=== PATIENT | male | born 1950 | race Caucasian/White ===

== ENCOUNTER 2019-11-17 15:13 | Outpatient (CLI) | payer MEDICARE, SELFPAY ==
--- NOTE | ~2019-11-17 | US_ITS ---
EXAMINATION: US scrotum doppler EXAM DATE: 11/17/2019 15:54 INDICATION: Testicular swelling for one week. TECHNIQUE: Multiple grayscale and Doppler images of the testicles and scrotum were obtained bilateral ly. There is no prior study for comparison. FINDINGS: Right testicle measures 3.5 x 2.5 x 2.9 cm and is morphologically normal. Low resistance Doppler geri w confirmed. There is small epididymal cyst. Moderate size hydrocele. Left testicle measures 3.3 x 2.6 x 2.5 cm and is morphologically normal. Low resistance Doppler flow confirmed. There are small epididymal cysts. There is moderate-sized hydrocele. IMPRESSION: Moderate-sized bilateral hydroceles. Reviewed, dictated and finalized at location A.
== END 2019-11-17 15:14 | disposition home or self-care (01) ==
PROVIDERS: PCP Family Medicine; Visit Provider Family Medicine
DX: E11.9 Type 2 diabetes mellitus without complications (principal); N50.89 Other specified disorders of the male genital organs; N43.3 Hydrocele, unspecified
CPT/HCPCS: 76870; 93976

== ENCOUNTER 2020-01-31 11:03 | Outpatient (CLI) | payer MEDICARE, SELFPAY ==
--- NOTE | ~2020-01-31 | XR_ITS ---
EXAMINATION: XR knee RT min 4V DATE: 01/31/2020 11:29 INDICATION: Right knee pain. TECHNIQUE: 4 views of right knee were obtained. COMPARISON: Right knee radiographs 09/13/2016 FINDINGS: Bone alignment is normal. No fracture. There is mild tricompartmental osteoarthritis. There is a small knee joint effusion. IMPRESSION: 1. Mild right knee osteoarthritis. 2. Small right knee joint effusion. Reviewed, dictated and finalized at location A.
== END 2020-01-31 11:04 | disposition home or self-care (01) ==
PROVIDERS: PCP Family Medicine; Visit Provider Family Medicine
DX: M17.11 Unilateral primary osteoarthritis, right knee (principal); M25.461 Effusion, right knee
CPT/HCPCS: 73564

== ENCOUNTER → 2020-09-16 01:53 | Outpatient (CLI) | payer MEDICARE, SELFPAY ==
[2020-09-16 18:53] LABS: SARS-CoV-2 RNA PCR Negative
== END ==
PROVIDERS: PCP Physician Assistant; Visit Provider Urology
DX: Z01.812 Encounter for preprocedural laboratory examination (principal); Z20.822 Contact with and (suspected) exposure to COVID-19
CPT/HCPCS: C9803; U0003; U0005

== ENCOUNTER 2020-09-16 08:18 | Outpatient (CLI) | payer MEDICARE, SELFPAY ==
--- NOTE | 2020-09-16 | ECG_ITS ---
Measurements Intervals [place] Rate: 62 P: 25 MT: 171 QRS: 11 QRSD: 94 T: -7 QT: 318 QTc: 325 Interpretive Statements SINUS RHYTHM NONSPECIFIC T-WAVE ABNORMALITY- INFERIOR LEADS BASELINE ARTIFACT- I, II, III, AVL, AVF, V3-V4 BORDERLINE ECG Electronically Signed On 09-16-2020 8:54:29 ENGINEERING RESEARCH MANAGER by Kevin Espino D.O.
== END 2020-09-16 08:19 | disposition home or self-care (01) ==
PROVIDERS: PCP Physician Assistant; Referring Provider Anesthesiology; Visit Provider Urology
DX: N20.1 Calculus of ureter (principal); Z01.818 Encounter for other preprocedural examination; R94.31 Abnormal electrocardiogram [ECG] [EKG]
CPT/HCPCS: 87086; 93005

== ENCOUNTER 2020-09-20 00:25 | Day surgery (SDC) | payer MEDICARE, SELFPAY ==
[2020-09-15 10:42] VITALS: BMI 38.7
--- NOTE | ~2020-09-20 | XR_ITS ---
EXAMINATION: XR retrograde pyelo w/stent RT EXAM DATE: 09/20/2020 13:45 INDICATION: Right-sided obstructive nephropathy. TECHNIQUE: Fluoroscopy used during XR retrograde pyelo w/stent RT performed by Dr. Jeremiah Esquivel MD. The DAP for this procedure was 1555 radcm2. Cine run(s) available for review. FINDINGS: The right ureter was cannulated, injected. There is moderate right-sided hydronephrosis. A double-J ureteral stent was placed. Correlate with procedure note. IMPRESSION: Fluoroscopy used during XR retrograde pyelo w/stent RT. Reviewed, dictated and finalized at location A.
--- NOTE | ~2020-09-20 | XR_ITS ---
EXAMINATION: XR abdomen/kub 1V EXAM DATE: 09/20/2020 11:45 INDICATION: Preoperative. Stent placement. TECHNIQUE: Frontal projection of the upper abdomen, frontal projection lower abdomen/pelvis for inter pretation. There is no prior study for comparison. FINDINGS: There is approximately 5 x 10 mm calcification projecting in right paraspinal location, fu rther lateral than typically seen for ureteral stone. Multiple bilateral kidney stones are identified , larger burden on the left. Pelvic calcifications which are probably phleboliths. Nonobstructive bow el gas pattern. Moderate disc disease L4-5 and L5-S1. IMPRESSION: 1. Possible right mid ureteral stone. 2. Bilateral nephrolithiasis. Reviewed, dictated and finalized at location A.
--- NOTE | 2020-09-20 12:16 | WPDHPUPDATE1 ---
History and Physical Update Update Date/Time: 09/20/20 12:16 Pt now on anticoagulation for recent DVT. Plan cystoscopy and right ureteral stent insertion. Deferred definitive stone management History and Physical has been reviewed, including an updated exam of the patient. There are NO changes in the patient's condition. Risks, benefits, and alternatives have been discussed and questions answered. Patient agrees to proceed with procedure.
[2020-09-20 12:30] VITALS: BP 151/76; PULSE 52; RESP 18; TEMP 36.7; O2SAT 100
[2020-09-20] MEDS: LACTATED RINGERS 1,000 ML 30 ML IV CONT ×2 (12:30→14:45)
[2020-09-20] MEDS: ACETAMINOPHEN 500 MG TABLET 1000 MG PO (13:00)
--- NOTE | 2020-09-20 13:03 | WPDANESEPPF ---
Anes - Initial Pre Proc Eval Procedure: Operation Date: 09/20/20 14:15 Proposed Procedures p Cystoscopy, Right Ureteral Stent Placement - Jeremiah Esquivel MD Date/Time: 09/20/20 13:03 Surgeon: Jeremiah Esquivel MD Pre Op Diagnosis: Right Ureteral Stone Patient Data Age: 69 Gender: M Height: 5 ft 7 in Weight: 112.27 kg Allergies Allergy/AdvReac Type Severity Reaction Status Date / Time CIELO Inhibitors Allergy Mild Cough Verified 09/20/20 13:05 Home Medications Medication Instructions Recorded Confirmed Type diltiazem HCl 360 mg 180 mg PO DAILY tablet 02/21/20 09/15/20 History tablet,extended release 24 hr allopurinol 300 mg tablet 300 mg PO DAILY tablet 09/14/20 09/15/20 History apixaban 5 mg (74 tabs) tablets in See Rx Instructions PO PER PKG DIR 09/14/20 09/15/20 Rx a dose pack #74 ea atorvastatin 20 mg tablet 10 mg PO DAILY tablet 09/14/20 09/15/20 History losartan 50 mg tablet 50 mg PO DAILY #90 tablet 09/14/20 09/15/20 Rx metoprolol succinate 50 mg 50 mg PO DAILY #90 tablet 09/14/20 09/15/20 Rx tablet,extended release 24 hr indomethacin 50 mg PO .PRN PRN 09/15/20 09/15/20 History Patient hx anesthesia problems: none Family hx anesthesia problems: none PMFSH Past Medical History Medical History Gout Hyperlipidemia Hypertension Obesity, morbid, BMI 40.0-49.9 Skin lesion Type 2 diabetes mellitus Surgical History Surgical History No pertinent past surgical history Family History Family History Father Family history of cardiovascular disease Acute myocardial infarction Family history of coronary artery disease Social History Social History Smoking status: Never smoker Second hand tobacco smoke exposure: No Alcohol intake: current Drinks per week: 10 Substance use: never Substance use type: does not use Living arrangements: with family Gender identity (if verbalized by the patient): Male Spiritual care concerns: No Anes - Eval Final PreProcedure Day of Procedure 09/20/20 13:03 Patient weight: obese Heart: regular rate and rhythm Lungs: clear to auscultation Airway: Mallampati scale class II Neurological: alert and oriented Last oral intake: >/= 8 hours ASA classification: III Emergent: no Anesthetic plan: proceed Anesthesia type and monitoring: general GIVS and standard monitoring Informed Consent: The patient's anesthetic plan and its attendant risks and benefits were discussed with the patient/family/POA. Questions were solicited and answers provided to the satisfaction of the patient/family/POA.
[2020-09-20] MEDS: ceFAZolin 2 GM/D5W 50 ML 2 GM/50 ML BAG IVPB (13:09)
[2020-09-20] MEDS: LIDOCAINE HCL 2% GEL UROJET 10 ML PKG MUCOUS MEM (13:18)
[2020-09-20 13:35] VITALS: BP 115/61; PULSE 52; RESP 10; O2SAT 95
--- NOTE | 2020-09-20 13:56 | PM.PROC ---
Procedure Note - Detailed Date of procedure: 09/20/20 Pre-op diagnosis: Right Ureteral Stone Post-op diagnosis: same (Right ureteral stone, urethral stricture) Procedure performed: -cystoscopy -right retrograde pyelogram -right ureteral stent insertion -complex Tabares catheter insertion Description of procedure: Informed consents obtained. Patient to the OR room. He of preoperative IV antibiotics. He was induced with anesthesia. Placed in dorsal lithotomy position. A 22 F rigid cystoscope was inserted into the penile urethra, there was a stricture in penile urethra, restricting advancement of the rigid cystoscope. We therefore switched to a flexible cystoscope, and I was able to manipulate the scope beyond the narrowing in the penile urethra and advanced into the bladder. Inspection of bladder revealed no mucosal abnormalities. We then cannulated the right ureteral orifice. We advanced a [employer] wire and I was able to manipulate the wire past the level of the stones in the mid ureter. Over the wire a 4.8 variable length stent with a curl in the upper pole and curled the bladder was placed. We then left the wire in the bladder and then again attempted to place a rigid cystoscope adjacent to the wire however it would not easily pass, we then were able to advance a flexible cystoscope adjacent to the wire and entered the bladder. Inspection revealed appropriate curl of the stent at the ureteral orifice. Inspection of the urethra revealed a stricture in the penile urethra. Over the wire we placed a 18 F [place] tip catheter. The patient was then taken to PACU in stable condition Anesthesia: MAC Surgeon: Jeremiah Esquivel MD Drains: Yes Packing: No Pathology: none sent Complications: No immediate complications Condition: stable Disposition: PACU
[2020-09-20 14:15] VITALS: BP 115/61; PULSE 55; RESP 15; O2SAT 95
[2020-09-20 14:50] VITALS: BP 125/67; PULSE 61; RESP 15
[2020-09-20 15:20] VITALS: BP 127/64; PULSE 63; RESP 15
--- NOTE | 2020-09-20 15:59 | SUR.PHASEII ---
1500- Spoke with on the phone at great length regarding mendieta care and emptying of mendieta. answered questions she had. Also spoke with pt and demonstrated emptying of mendieta. Pt had some bleeding around head of penis around mendieta. abd pad placed when pt dressing to protect clothing.
== END 2020-09-20 15:35 | disposition home or self-care (01) ==
PROVIDERS: PCP Physician Assistant; Visit Provider Urology
PROC: (CPT 52352; principal; 2020-09-20 14:15)
DX: N20.1 Calculus of ureter (principal); N35.911 Unspecified urethral stricture, male, meatal; I10 Essential (primary) hypertension; E11.9 Type 2 diabetes mellitus without complications; E78.5 Hyperlipidemia, unspecified; M10.9 Gout, unspecified; Z79.01 Long term (current) use of anticoagulants; E66.01 Morbid (severe) obesity due to excess calories; Z68.39 Body mass index [BMI] 39.0-39.9, adult
CPT/HCPCS: 52332; 74018; 74420; 87086; 93005; A9270; C1769; C1887; C2617; C9803; J0690; J2704; J3010; J7120; U0003; U0005

== ENCOUNTER 2020-09-27 12:24 | Outpatient (CLI) | payer MEDICARE, SELFPAY ==
--- NOTE | ~2020-09-27 | XR_ITS ---
XR abdomen/kub 1V DATE: 09/27/2020 12:44 INDICATION: Right ureteral stone TECHNIQUE: AP projection, 2 views COMPARISON: 09/20/2020 right retrograde pyelogram 09/20/2020 KUB FINDINGS: Calcified calculus previously overlying the right ureter at the L4 level now overlies the l ower pole of the right kidney. There has been interval placement of right internal urinary stent with proximal pigtail overlying the right renal pelvis and distal pigtail overlying the urinary bladder. A Tabares catheter is noted. Bilateral nephrolithiasis. There is a moderate amount of fecal material in the colon but no evidence of bowel obstruction. The p soas shadows are intact. No visceromegaly is evident. Diffuse idiopathic skeletal hyperostosis of the thoracolumbar spine. IMPRESSION: Right internal urinary stent placement; previous large calcified calculus has been displa maddi into the lower pole of the right kidney from the right ureter at the L4 level Bilateral nephrolithiasis Reviewed, dictated and finalized at Location A. Reviewed, dictated and finalized at location B. IMPRESSION: Right internal urinary stent placement; previous large calcified ca lculus has been displaced into the lower pole of the right kidney from the righ t ureter at the L4 level Bilateral nephrolithiasis
== END 2020-09-27 12:25 | disposition home or self-care (01) ==
PROVIDERS: PCP Physician Assistant; Visit Provider Urology
DX: N20.0 Calculus of kidney (principal)
CPT/HCPCS: 74018

== ENCOUNTER 2020-09-29 12:23 | Emergency (ER) | payer MEDICARE, SELFPAY ==
--- NOTE | ~2020-09-29 | CT_ITS ---
EXAMINATION: CT abdomen pelvis wo con DATE: 09/29/2020 13:17 INDICATION: UTI. Kidney stones. Lung bases are unremarkable. Heart size is normal. No significant ple ural or pericardial effusion. TECHNIQUE: Computed tomography (CT) of the abdomen and pelvis was performed without intravenous contr ast. The dose-length product was 569.03 mGy-cm. Automated exposure control and iterative reconstructi on technique were employed. COMPARISON: None. FINDINGS: Heart size normal. No significant pleural or pericardial effusion. There is a right interna l ureteral stent in expected position. There is mild right periureteral edema. There are multiple shilo ateral renal stones. No definite ureteral stones are identified. There are bilateral renal cysts, lar gest in the right kidney measuring 5.9 cm. The prostate gland is enlarged. There is a urachal remnant . Severe lumbar spondylosis with grade 1 spondylolisthesis at L3-4. The liver, spleen, pancreas, adrenal glands are unremarkable. Gallbladder is present. Nonobstructive bowel gas pattern. No free air or free fluid. IMPRESSION: 1. Nonobstructing bilateral nephrolithiasis. Right internal ureteral stent in expected position. Mild right periureteral edema which is most likely secondary to instrumentation, although ascending urina ry tract infection not excluded. Trace gas in the bladder. Reviewed, dictated and finalized at location B. IMPRESSION: 1. Nonobstructing bilateral nephrolithiasis. Right internal ureteral stent in e xpected position. Mild right periureteral edema which is most likely secondary to instrumentation, although ascending urinary tract infection not excluded. Tr pedro pablo gas in the bladder.
[2020-09-29 12:30] VITALS: BP 133/64; PULSE 84; RESP 16; TEMP 36.5; O2SAT 99
[2020-09-29 12:59] LABS: Add Urine Microscopic? YES; Appearance Urine Cloudy (Clear); Bilirubin Urine Negative (Negative); Blood Urine 2+ (Negative); Color Urine Yellow (Yellow); Glucose Urine UA Negative (Negative); Ketones Urine Negative (Negative); Leukocyte Esterase Ur 3+ LEU/UL (Negative); Mucus Urine Rare /lpf; Nitrate Urine Positive (Negative); Protein Urine 2+ mg/dL (Negative); RBC Urine 21-50 /hpf (0-2); Specific Grav Ur 1.015 (1.001-1.035); Squamous Epithelial Cell Urine Occasional /hpf (Few); WBC Clumps Urine Present /HPF; WBC Urine >75 /hpf
--- NOTE | 2020-09-29 13:07 | ED.GENADULT ---
HPI - General Adult General Chief complaint: Urogenital-Male Stated complaint: UTI? Time Seen by Provider: 09/29/20 12:39 Source: RN notes reviewed History of Present Illness HPI narrative: Patient presents emergency department from home for fever. Patient states he had a fever of 100.5 at home she has been associated with dysuria and cloudy urine for the past day patient states he had a history of urinary retention just had a Tabares catheter removed by Dr. Esquivel on Friday patient also states he has a kidney stone on the left side however he is on blood thinners for blood clot in his leg and they were waiting until the blood clot had resolved the patient could be off thinners to have surgery for his kidney stone he denies any chest pain shortness of breath abdominal pain or any other symptoms states he had taking Tylenol ibuprofen Related Data Home Medications Medication Instructions Recorded Confirmed diltiazem HCl 360 mg 180 mg PO DAILY tablet 02/21/20 09/15/20 tablet,extended release 24 hr allopurinol 300 mg tablet 300 mg PO DAILY tablet 09/14/20 09/15/20 atorvastatin 20 mg tablet 10 mg PO DAILY tablet 09/14/20 09/15/20 indomethacin 50 mg PO .PRN PRN 09/15/20 09/15/20 Allergies Allergy/AdvReac Type Severity Reaction Status Date / Time CIELO Inhibitors Allergy Mild Cough Verified 09/29/20 12:35 Review of Systems Review of Systems: Narrative: Gen.: Reports fever ENT: Denies congestion Respiratory: Denies shortness of breath or cough CV: Denies chest pain or palpitations GI: Denies abdominal pain nausea, emesis or diarrhea see HPI Musculoskeletal: Denies back pain or muscle pain Neuro: Denies numbness, tingling, weakness or focal weakness Skin: Denies rash Except as documented, all other systems reviewed and negative [facility] Past Medical History Medical History Gout Hyperlipidemia Hypertension Obesity, morbid, BMI 40.0-49.9 Skin lesion Type 2 diabetes mellitus Surgical History Surgical History No pertinent past surgical history Family History Family History Father Family history of cardiovascular disease Acute myocardial infarction Family history of coronary artery disease Social History Social History Smoking status: Never smoker Second hand tobacco smoke exposure: No Alcohol intake: current Drinks per week: 10 Substance use: never Substance use type: does not use Gender identity (if verbalized by the patient): Male Spiritual care concerns: No Exam Narrative: Exam Narrative: APPEARANCE: No acute distress, nontoxic, resting in bed EYES: EOMI HEENT: Normocephalic, atraumatic, OMM RESPIRATORY: No respiratory distress Clear to auscultation bilaterally with no rhonchi wheezing or rales. CARDIOVASCULAR: Regular rate and rhythm without murmurs rubs or gallops. ABDOMINAL: Soft, nontender, nondistended, no rebound or guarding MUSCULOSKELETAl: Moves all extremities. No clubbing, cyanosis or edema. NEURO: Awake and alert. Following commands, speech normal, no focal deficits SKIN:: Warm, dry. No rashes lesions or abrasions PSYCHIATRIC: Normal affect/mood, Course Course Emergency Course: : Discussed with DIRECTOR MEDICAL SAFETY Martina who discussed the case with Dr. Finn. This time they recommend starting the patient on Levaquin may be discharged to follow-up as an outpatient we discussed the patient's post void residual request no Tabares at this time Patient got up and ambulated to the restroom with no difficulty Discussed with patient results of workup and diagnosis. Discussed need for follow-up with primary care, proper use of medication, and reasons to return to the emergency department. Patient understands and agrees to current treatment plan Vital Signs Vital signs: V
[2020-09-29] MEDS: SODIUM CHLORIDE 0.9% IV 1,000 ML 999 ML IV CONT (13:15)
[2020-09-29 13:18] LABS: Basophils Absolute Auto 0.1 K/mm3 (0.0-0.1); Basophils Percent Auto 0.5 % (0.2-1.2); Eosinophils Percent Auto 0.2 % (0-4.4); Hematocrit 41.8 % (42.0-52.0); Hemoglobin 14.4 g/dL (14.0-18.0); Immature Granulocyte Absolute 0.05 K/mm3 (0.00-0.031); Immature Granulocyte Percent A 0.4 % (0-0.5); Lymphocytes Absolute Auto 1.22 K/mm3 (0.9-3.2); Lymphocytes Percent Auto 9.2 % (18.3-44.2); Mean Corpuscular HGB Conc 34.4 g/dl (32-36); Mean Corpuscular Hemoglobin 31.3 pg (26-34); Mean Corpuscular Volume 90.9 fl (80-100); Mean Platelet Volume 9.6 fl (7.4-10.4); Monocytes Absolute Auto 0.9 K/mm3 (0.1-0.6); Monocytes Percent Auto 6.6 % (2.6-8.5); Neutrophils Percent Auto 83.1 % (45.5-73.1); Platelet Count Result 214 k/mm3 (150-375); Red Cell Distribution Width 12.9 % (11.5-14.5); White Blood Count 13.2 K/mm3 (4.5-10.0)
[2020-09-29 13:26] LABS: INR 1.5; Prothrombin Time 18.5 Seconds (11.1-14.7)
[2020-09-29 13:27] LABS: Partial Thromboplastin Time 35.8 SECONDS (22.3-36.8)
[2020-09-29 13:30] LABS: Alanine Aminotransferase 45 U/L (4-50); Albumin Level 4.3 g/dL (3.5-5.1); Alkaline Phosphatase 123 U/L (38-126); Anion Gap 8 mmol/L (8-16); Aspartate Amino Transferase 32 U/L (17-59); Bilirubin,Total 1.4 mg/dL (0.2-1.3); Blood Urea Nitrogen 23 mg/dL (9-20); Calcium 8.9 mg/dL (8.4-10.2); Carbon Dioxide 30 mmol/L (22-30); Chloride 102 mmol/L (98-107); Estimated CRCL calculation 44 ml/min; Estimated Glomerular Filt Rate 40; Glucose 122 mg/dL (75-110); Potassium 3.6 mmol/L (3.4-5.0); Sodium 140 mmol/L (137-145)
[2020-09-29 14:09] LABS: Lactic Acid Reflex 1.1 mmol/L (0.7-2.1)
[2020-09-29 14:47] VITALS: BP 121/66; PULSE 77; RESP 12; O2SAT 99
[2020-09-29 15:47] VITALS: BP 124/70; PULSE 70; RESP 12; O2SAT 99
== END 2020-09-29 15:47 | disposition home or self-care (01) ==
PROVIDERS: Emergency Provider Emergency Medicine; PCP Physician Assistant
DX: N39.0 Urinary tract infection, site not specified (principal); M10.9 Gout, unspecified; E78.5 Hyperlipidemia, unspecified; I10 Essential (primary) hypertension; E66.01 Morbid (severe) obesity due to excess calories; Z68.37 Body mass index [BMI] 37.0-37.9, adult; E11.9 Type 2 diabetes mellitus without complications; N20.0 Calculus of kidney; Z96.0 Presence of urogenital implants; Z79.01 Long term (current) use of anticoagulants
CPT/HCPCS: 36415; 74176; 80053; 81001; 83605; 85025; 85610; 85730; 87040; 87077; 87086; 87088; 87186; 96361; 96365; 99284; J1956; J7030

== ENCOUNTER 2020-10-01 23:28 | Inpatient (IN) | payer MEDICARE, SELFPAY ==
--- NOTE | ~2020-10-01 | XR_ITS ---
EXAMINATION: XR chest 1V portable DATE: 10/02/2020 00:36 INDICATION: Fever TECHNIQUE: frontal view of the chest was obtained. COMPARISON: Chest radiograph dated 07/18/15 FINDINGS: Small lung volumes. Opacities in the left lower lung zone. No pleural effusion or pneumothorax. The c ardiomediastinal silhouette is normal. Mild thoracic dextrocurvature with moderate spondylosis. IMPRESSION: 1. Opacities in the left lower lung zone which could represent atelectasis and/or pneumonia. Reviewed, dictated and finalized at location A. IMPRESSION: 1. Opacities in the left lower lung zone which could represent atelectasis and/ or pneumonia.
--- NOTE | ~2020-10-01 | XR_ITS ---
EXAMINATION: XR abdomen/kub 1V DATE: 10/02/2020 00:35 INDICATION: Ureteral stent TECHNIQUE: A supine view of the abdomen on 2 radiographs was obtained. COMPARISON: CT dated 09/29/2020 FINDINGS: Right internal ureteral stent in unchanged position with loops formed at the right renal pelvis and b ladder. Bilateral nephrolithiasis which includes approximately 6 mm stones at the mid and lower pole of the left kidney and at the lower pole of the right kidney. No stones identified along the course o f the ureters. Multiple phleboliths in the pelvis. Severe lumbar spondylosis with partially sacralize d lumbosacral segment. IMPRESSION: 1. Bilateral nephrolithiasis with unchanged right internal ureteral stent. Reviewed, dictated and finalized at location A.
--- NOTE | ~2020-10-01 | CT_ITS ---
EXAMINATION: CT abdomen pelvis wo con DATE: 10/02/2020 02:47 INDICATION: Right flank pain. Kidney stones. TECHNIQUE: Computed tomography (CT) of the abdomen and pelvis was performed without intravenous contr ast. The dose-length product was 1465.84 mGy-cm. Automated exposure control and iterative reconstruct ion technique were employed. COMPARISON: CT dated 09/29/2020 FINDINGS: r there is a 3 mm right middle lobe nodule. There is a fissural nodule on the right measuri ng 8 mm, not appreciated on prior examination. Heart size normal. There is atherosclerosis. Small hia xiomara hernia. Right ureteral stent in expected position. Mild right periureteral edema. There are bilateral renal s tones. No definite ureteral stones. Mild right hydronephrosis. No left hydronephrosis. Bilateral javier l cysts. Nonobstructive bowel gas pattern. Mild atherosclerosis without aneurysm. Enlarged prostate gland. The re is osteoarthritis of the hips. Severe lumbar spondylosis. Nonspecific adrenal thickening unchanged , likely adrenal hyperplasia. IMPRESSION: 1. No significant interval change from prior examination with right ureteral stent in expected positi on. No definite ureteral stones. Mild right hydronephrosis and periureteral edema. 2: Bilateral nephrolithiasis. Reviewed, dictated and finalized at location B. IMPRESSION: 1. No significant interval change from prior examination with right ureteral st ent in expected position. No definite ureteral stones. Mild right hydronephrosi s and periureteral edema. 2: Bilateral nephrolithiasis.
[2020-10-01 23:35] VITALS: BP 126/72; PULSE 109; RESP 18; TEMP 39.4; O2SAT 95
--- NOTE | 2020-10-01 23:42 | ECG_ITS ---
Measurements Intervals [place] Rate: 102 P: -7 AL: 161 QRS: 9 QRSD: 87 T: -7 QT: 360 QTc: 471 Interpretive Statements SINUS TACHYCARDIA DELAYED PRECORDIAL R/S TRANSITION BORDERLINE ST-T WAVE ABNORMALITY- INF/HIGH LAT LEADS BORDERLINE ECG Electronically Signed On 10-02-2020 7:04:10 CDT by Kevin Espino D.O.
[2020-10-02] VITALS (14 sets, daily range): BP systolic 85–139; BP diastolic 51–71; PULSE 61–88; RESP 14–23; TEMP 36.7–37.7; O2SAT 95–99; BMI 37.4
[2020-10-02 00:11] LABS: Basophils Percent Auto 0.4 % (0.2-1.2); Eosinophils Percent Auto 1.6 % (0-4.4); Hematocrit 40.4 % (42.0-52.0); Hemoglobin 14.2 g/dL (14.0-18.0); Immature Granulocyte Absolute 0.01 K/mm3 (0.00-0.031); Immature Granulocyte Percent A 0.4 % (0-0.5); Lymphocytes Absolute Auto 0.11 K/mm3 (0.9-3.2); Lymphocytes Percent Auto 4.3 % (18.3-44.2); Mean Corpuscular HGB Conc 35.1 g/dl (32-36); Mean Corpuscular Hemoglobin 31.1 pg (26-34); Mean Corpuscular Volume 88.6 fl (80-100); Mean Platelet Volume 9.6 fl (7.4-10.4); Monocytes Percent Auto 0.8 % (2.6-8.5); Neutrophils Absolute Auto 2.4 K/mm3 (1.3-6.7); Neutrophils Percent Auto 92.5 % (45.5-73.1); Platelet Count Result 185 k/mm3 (150-375); Red Blood Count 4.56 M/mm3 (4.6-6.20); Red Cell Distribution Width 12.6 % (11.5-14.5); White Blood Count 2.6 K/mm3 (4.5-10.0)
[2020-10-02] MEDS: SODIUM CHLORIDE 0.9% IV 1,000 ML 999 ML IV CONT ×2 (00:12→01:16)
--- NOTE | 2020-10-02 00:17 | ED.FEVER ---
HPI - Fever General Chief Complaint: Fever Stated Complaint: fever, shakes Time Seen by Provider: 10/01/20 23:37 Source: patient Mode of arrival: ambulatory Limitations: no limitations History of Present Illness HPI Narrative: This is a 69 year old male with history of bilateral kidney stones, urethral stricture, hypertension, recent DVT on anticoagulation who presents for evaluation of fever, shakiness and weakness. Patient states he has not felt well for a few days. He was evaluated in [place] ED on Friday and he was started on antibiotics for a uti. He was started on Levaquin but he has still not felt well. His states tonight he developed a fever, shakiness and weakness. He has associated nausea but denies fever, diarrhea, cough, chest pain , abdominal pain, back pain or shortness of breath. He was noted to have a fever of 103F in ER tonight and he took 1000 mg Tylenol prior to coming to ER. He has frequent urination . Patient had a right ureteral stent placed by Dr. Esquivel on 09/20/20. He also had a Tabares catheter at time of procedure but it was removed last week. MD elicited complaint: fever Related Data Home Medications Medication Instructions Recorded Confirmed diltiazem HCl 360 mg 180 mg PO DAILY tablet 02/21/20 10/02/20 tablet,extended release 24 hr allopurinol 300 mg tablet 300 mg PO DAILY tablet 09/14/20 10/02/20 atorvastatin 20 mg tablet 10 mg PO DAILY tablet 09/14/20 10/02/20 indomethacin 50 mg PO .PRN PRN 09/15/20 10/02/20 apixaban [Eliquis DVT-PE Treat 30D 10 mg PO DAILY 10/02/20 10/02/20 Start] Allergies Allergy/AdvReac Type Severity Reaction Status Date / Time CIELO Inhibitors Allergy Mild Cough Verified 10/01/20 23:40 Review of Systems Review of Systems: All systems reviewed & are unremarkable except as noted in HPI and below Constitutional: Constitutional: Reports chills, Reports fatigue and Reports fever(s) ENT: Denies sore throat Cardiovascular: Cardiovascular: Denies chest pain Respiratory: Respiratory: Denies cough and Denies dyspnea Gastrointestinal: Gastrointestinal: Denies abdominal pain, Denies diarrhea, Reports nausea and Reports vomiting Genitourinary: Genitourinary: Reports urinary frequency Musculoskeletal: Musculoskeletal: Denies back pain PMF Past Medical History Medical History (Updated 10/02/20 @ 05:46 by Johana Thorpe MD) DVT (deep venous thrombosis) After road trip to [place] 09/14/2020 Gout Hyperlipidemia Hypertension Obesity, morbid, BMI 40.0-49.9 Skin lesion Type 2 diabetes mellitus Surgical History Surgical History (Updated 10/02/20 @ 03:58 by Leatah Clark DO) S/P ureteral stent placement (09/20/20) Right ureteral stent placed by Dr. Roy Family History Family History Father Acute myocardial infarction Heart disease Social History Social History Smoking status: Never smoker Second hand tobacco smoke exposure: No Alcohol intake: current Drinks per week: 14 Substance use: never Substance use type: does not use Gender identity (if verbalized by the patient): Male Spiritual care concerns: No Exam Const: General: alert, diaphoretic and ill appearing Orientation/consciousness: patient oriented x3 Eyes: EOM: EOMs intact bilaterally Chest: Chest palpation & inspection: normal inspection of the chest Resp: Effort & Inspection: normal respiratory effort and no retractions Auscultation: clear to auscultation bilaterally Cardio: Rate: regular rate Rhythm: regular rhythm Heart sounds: no murmurs GI: GI Palp: Yes Soft to palpation, No Tenderness to palpation present (GI) and No Guarding due to palpation present (GI) Auscultation: normal bowel sounds : General: Yes no CVA tenderness Skin: General skin exam: normal color Rashes: no rashes Neuro: General: p
--- NOTE | 2020-10-02 00:20 | PC.NURSE ---
pt provided with urinal, states unable to void at this time. Will attempt again shortly
[2020-10-02 00:29] LABS: Alanine Aminotransferase 60 U/L (4-50); Albumin Level 4.2 g/dL (3.5-5.1); Alkaline Phosphatase 137 U/L (38-126); Anion Gap 12 mmol/L (8-16); Aspartate Amino Transferase 58 U/L (17-59); Bilirubin,Total 1.3 mg/dL (0.2-1.3); Blood Urea Nitrogen 25 mg/dL (9-20); Calcium 9.2 mg/dL (8.4-10.2); Carbon Dioxide 23 mmol/L (22-30); Chloride 103 mmol/L (98-107); Estimated Glomerular Filt Rate 30; Glucose 218 mg/dL (75-110); Potassium 3.1 mmol/L (3.4-5.0); Sodium 138 mmol/L (137-145)
[2020-10-02 00:38] LABS: CRP 17.5 mg/dL (<1.0)
--- NOTE | 2020-10-02 00:45 | PC.NURSE ---
pt attempted to void, unsuccessful at this time. will try again shortly
[2020-10-02 01:18] LABS: INR 1.6; Partial Thromboplastin Time 39.5 SECONDS (22.3-36.8); Prothrombin Time 19.3 Seconds (11.1-14.7)
--- NOTE | 2020-10-02 01:26 | PC.NURSE ---
attempted to obtain urine, stood pt up with urinal. urine obtained and sent to lab.
[2020-10-02 01:32] LABS: Add Urine Microscopic? YES; Appearance Urine Cloudy (Clear); Bacteria Urine 4+ /hpf; Bilirubin Urine Negative (Negative); Blood Urine 1+ (Negative); Color Urine Yellow (Yellow); Glucose Urine UA Negative (Negative); Ketones Urine Negative (Negative); Leukocyte Esterase Ur 3+ LEU/UL (Negative); Mucus Urine Heavy /lpf; Nitrate Urine Positive (Negative); Protein Urine 2+ mg/dL (Negative); RBC Urine 21-50 /hpf (0-2); Specific Grav Ur 1.018 (1.001-1.035); Squamous Epithelial Cell Urine Occasional /hpf (Few); WBC Urine >75 /hpf
[2020-10-02] MEDS: LACTATED RINGERS 1,000 ML 999 ML IV CONT (02:25)
--- NOTE | 2020-10-02 02:39 | PC.NURSE ---
pt went down to catscan.
[2020-10-02 03:10] LABS: Reflex Lactic Acid Yes or No Add Lactic
[2020-10-02] MEDS: SODIUM CHLORIDE 0.9% IV 500 ML 999 ML IV CONT (03:20)
--- NOTE | 2020-10-02 03:38 | ADMGEN ---
This patient, Junior Morrow, was admitted to Intensive Care Unit-6. Patient/family oriented to hospital policies and general routines including ID bracelet, bed and alarms, visiting hours, pain management, procedures, bathroom and other care routines, personal items, smoking policy, room service/diet, and visiting hours. Information on how to activate the Rapid Response Team has been discussed. Patient/Family are encouraged to report perceived risks to care and to ask questions if they do not understand what they are told or what they should do.
--- NOTE | 2020-10-02 03:45 | PM.IMHP ---
H&P: HPI History of Present Illness Date/Time: 10/02/20 03:45 Chief Complaint: Fever Narrative: 69-year-old male with a past medical history of pre diabetes, hypertension, DVT, bilateral kidney stones with proximal right ureteral stone with subsequent cystoscopy with stent placement 09/20/2020 who presented to the ER with fever chills and weakness. The patient had recently traveled to [place] at which time he developed right flank pain and was found to have tandem right ureteral stones measuring up to 8 mm. He subsequently drove home over 3 day. He went for cystoscopy on 09/14/2020 but reported acute left lower extremity swelling was found to have an acute DVT in the proximal femoral vein extending into the anterior tibial, posterior tibial and peroneal veins. He was started on Eliquis. His cystoscopy was canceled at that time in rescheduled for cystoscopy on 09/20/2020. He underwent cystoscopy without difficulty and is Tabares catheter would was removed on 09/24/2020. He presented with a temperature of 100.5? associated with dysuria and cloudy urine. He had a CT of the abdomen and pelvis performed at that time nonobstructive bilateral nephrolithiasis with right internal ureteral stent in expected position with mild right irene ureteral edema most likely secondary to instrumentation although ascending UTI could not be excluded. The patient was discharged from the ER on empiric antibiotic therapy with Levaquin he was supposed to call the urology office on 10/02/2020. Unfortunately, he continued to have low-grade fevers, weakness and chills. He decided to come to the ER per his daughter's request when he spiked a temperature of 103.5? at home. He took a g of Tylenol in still had a temperature of a 103? when he arrived to the ER. He has been having increased frequency of urination and persistent dysuria. It turns out that the patient's urine culture from 09/29/2020 grew out E coli that was resistant to Levaquin. Review of Systems Review of Systems: Narrative: 12 systems were reviewed with pertinent positives and negatives per HPI. Except as documented in the HPI, all other systems were reviewed and are negative. [facility] Past Medical History Medical History (Updated 10/02/20 @ 06:43 by Leatha Clark DO) DVT (deep venous thrombosis) Left lower extremity after road trip to [place] 09/14/2020 Gout Hyperlipidemia Hypertension Obesity, morbid, BMI 40.0-49.9 Obstructive sleep apnea on CPAP Pre-diabetes No longer on medications with hemoglobin A1c of 5.04 September 2020 Skin lesion Excised from forearm Surgical History Surgical History (Updated 10/02/20 @ 03:58 by Leatha Clark DO) S/P ureteral stent placement (09/20/20) Right ureteral stent placed by Dr. Roy Family History Family History Father Acute myocardial infarction Heart disease Social History Social History (Updated 10/02/20 @ 06:33 by Leatha Clark DO) Social History: He lives in [place] with his . 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 He has 4 daughters who are healthy. He drinks 2 alcoholic beverages a day. Primary care provider: Balta Pickens Code status: Full code Surrogate decision maker: Smoking status: Never smoker Second hand tobacco smoke exposure: No Alcohol intake: current Drinks per week: 14 Substance use: never Substance use type: does not use Gender identity (if verbalized by the patient): Male Spiritual care concerns: No Meds Home Medications and Allergies Home Medications Medication Instructions Recorded Confirmed Type diltiazem HCl 360 mg 180 mg PO DAILY tablet 02/21/20 10/02/20 History tablet,extended release 24 hr allopurinol 300 mg tablet 300 mg PO DAILY tablet 09/14/20 10/02/20 History atorvastatin 20 mg tablet 10 mg PO DAILY tablet 09/14/20 10/02/20 History losartan 50 mg tablet 50 mg PO DAILY #90 tablet
[2020-10-02] MEDS: LACTATED RINGERS 1,000 ML 125 ML IV CONT ×2 (04:28→09:05)
--- NOTE | 2020-10-02 05:02 | PCRCNOTE ---
Called RN about starting new cpap order. RN stated that pt is going to bring it in later today.
[2020-10-02] MEDS: CENTRAL LINE FLUSH 10 ML IV PUSH (06:19)
--- NOTE | 2020-10-02 06:46 | P.PCNBED_ITS ---
Procedures Central Line Placement Right Femoral: Central Line Date: 10/02/20 Central Line Time: 06:00 Discussed w/ the patient/family/POA,the placement of a central venous catheter, including its clinical necessity/indication & associated potential risks, benifits and alternatives.: Yes The patient/family/POA understand(s) and acknowledge(s) the need to proceed with central venous catheter insertion as an important element of the patient's clinical management.: Yes Time Out Performed: Yes Patient Position: trendelenburg Patient placed on monitor/pulse ox: Yes Provider Prep: mask, sterile gown, sterile gloves, Max. sterile barrier precautions, cap and hand hygiene with conventional soap/water or alcohol based hand rub Central line prep: 2% Chlorhexidine scrub Local anesthesia used: lidocaine 1% Amount of anesthesia used (ml): 10 Sterile US Technique with sterile gel/sterile probe covers: Yes Central line lumen inserted: triple Belarusian: 7 Length (cm): 20 Depth of Insertion (cm): 19 Post Procedure: sutured in place, good blood return, all ports aspirated, flushed, capped, transparent dressing, hemostatic product, antimicrobial product and securement product Complications: none
[2020-10-02] MEDS: POTASSIUM CHLORIDE 20 MEQ TABLET 40 MEQ PO (08:11)
[2020-10-02] MEDS: ATORVASTATIN 10 MG TABLET PO (08:11)
[2020-10-02] MEDS: APIXABAN 5 MG TABLET 10 MG PO (08:11)
[2020-10-02] MEDS: dilTIAZem HCL CD 180 MG CAP.ER.24H PO (08:11)
[2020-10-02] MEDS: allopurinoL 300 MG TABLET PO (08:11)
--- NOTE | 2020-10-02 09:22 | WPDURCON ---
Assessment and Plan Assessment and plan (1) Calculus of proximal right ureter: Code(s): N20.1 - Calculus of ureter Status: Acute Assessment and Plan: Stent is in place, although creatinine is elevated. Will continue to watch creatinine and if it rises may need to exchange stent or re-image. (2) UTI (urinary tract infection): Code(s): N39.0 - Urinary tract infection, site not specified Status: Acute Assessment and Plan: Continue use of Rocephin, will tailor according to culture. Culture from 09/29/2020 shows susceptibility to the culture. (3) Severe sepsis: Code(s): A41.9 - Sepsis, unspecified organism; R65.20 - Severe sepsis without septic shock Status: Acute (4) E. coli urinary tract infection: Code(s): N39.0 - Urinary tract infection, site not specified; B96.20 - Unspecified Escherichia coli [E. coli] as the cause of diseases classified elsewhere Status: Acute (5) Bilateral nephrolithiasis: Code(s): N20.0 - Calculus of kidney Status: Acute Assessment and Plan: No further surgical (6) Acute renal failure: Qualifiers: Acute renal failure type: unspecified Qualified Code(s): N17.9 - Acute kidney failure, unspecified Code(s): N17.9 - Acute kidney failure, unspecified Status: Acute Urology Consult Note HPI Date Seen: 10/02/20 Requesting Physician: Leatha Clark DO Primary Care Provider: Balta Pickens PA-C Consult Narrative Narrative: Junior Morrow is a 69 year old male who presented to the ER early this morning with worsening symptoms of UTI. He initially had a cystoscopy, right stent placed by Dr. Jeremiah Esquivel on 09/20/2020. He did well post operatively until he developed dysuria and frequency, as well as a low grade fever of 100 on 09/29/2020 and came to the [facility] at [facility] His WBC at that time was 13.6, fever was 100, and creatinine 1.70. He was started on Levaquin, a culture and CT were done as well and he was sent home. The CT on 09/29/2020 showed the right stent in position with bilateral non obstructive stones and the urine culture grew E-Coli resistant to Levaquin. Upon arriving at the ER this morning he was found to have a temperature of [address] scan showing mild right hydronephrosis and periureteral edema and bilateral non obstructive stones with the right stent still in place. His WBC is low 2.6 and creatine has risen to 2.20. He reports feeling weak, having chills and nausea accompanied by dysuria and frequency that had worsened over the weekend. He is also hypotensive at this time. He states he is now feeling better and his symptoms have improved since being admitted. A repeat urine and blood culture was taken. His previous blood culture showed no growth preliminarily. Review of Systems Cardiovascular: Cardiovascular: Denies chest pain Respiratory: Respiratory: Reports no additional respiratory complaints Gastrointestinal: Gastrointestinal: Denies abdominal pain, Reports nausea and Denies vomiting Genitourinary: Genitourinary: Denies hematuria, Reports dysuria, Denies flank pain, Reports urinary frequency, Denies urinary hesitancy and Denies urinary urgency PMFSH Past Medical History Medical History DVT (deep venous thrombosis) Left lower extremity after road trip to [place] 09/14/2020 Gout Hyperlipidemia Hypertension Obesity, morbid, BMI 40.0-49.9 Obstructive sleep apnea on CPAP Pre-diabetes No longer on medications with hemoglobin A1c of 5.04 September 2020 Skin lesion Excised from forearm Surgical History Surgical History S/P ureteral stent placement (09/20/20) Right ureteral stent placed by Dr. Roy Family History Family History Father Acute myocardial infarction Heart disease Social History Social H
--- NOTE | 2020-10-02 11:40 | WPDCNINT ---
Assessment and Plan Assessment and plan (1) E. coli urinary tract infection: Code(s): N39.0 - Urinary tract infection, site not specified; B96.20 - Unspecified Escherichia coli [E. coli] as the cause of diseases classified elsewhere Status: Acute Assessment and Plan: Continue ceftriaxone 1 g daily for 7 days. (2) Severe sepsis with acute organ dysfunction due to gram-negative bacteria: Code(s): A41.50 - Gram-negative sepsis, unspecified; R65.20 - Severe sepsis without septic shock Status: Acute Assessment and Plan: He never required vasopressor support and is doing well this morning. He has good urine output and is tolerating oral diet. (3) MARY LOU (acute kidney injury): Code(s): N17.9 - Acute kidney failure, unspecified Status: Acute Assessment and Plan: Unclear as to whether he has acute on chronic kidney injury or this is all acute. Will consult Nephrology for their expertise in management and appreciate their support. Additional Plan The patient is stable to transfer to the medical briones without telemetry DVT prophylaxis -already fully anticoagulated Stress ulcer prophylaxis - not needed Nutrition: resume cardiac diet Discussed with patient's mother and updated with patient's condition and plan of care. I answered all questions Code Status - Full Code Critical care time spent: 33 minutes This dictation may have been done utilizing a voice recognition system. Attempts have been made to correct errors. However, there may be uncorrected grammatical, spelling, and recognition errors present. Due to a high probability of clinically significant, life threatening deterioration, the patient required my highest level of preparedness to intervene emergently and I personally spent this critical care time directly and personally managing the patient. This critical care time included obtaining a history; examining the patient; pulse oximetry; ordering and review of studies; arranging urgent treatment with development of a management plan; evaluation of patient's response to treatment; frequent reassessment; and discussions with other providers. It was exclusive of separately billable procedures and treating other patients and teaching time. Please see Assessment and Plan section and the rest of the note for further information on patient assessment and treatment Palletiser Operator Consult Note Consult date: 10/02/20 Time Seen: 09:30 HPI: Junior Morrow is a 69 year old male who presented last night with sepsis due to UTI. He had significant nephrolithiasis and had a right ureter stent approximately 2-3 weeks ago. He came to our emergency department a few days ago with fevers chills night sweats and was prescribed Levaquin. At home he continued to deteriorate having intermittent bouts of fevers chills and night sweats. He was admitted last night with slight hypotension required fluid resuscitation but no requirement of vasopressor support. The urine culture from 09/29/20 showed E coli which was resistant to fluoroquinolones. He was started on ceftriaxone yesterday and he is feeling much better today. Other medical history includes obstructive sleep apnea, hypertension, hyperlipidemia and a history of DVT on anticoagulation. He denies any history of kidney disease although his creatinine has been between 1.7 and 2.2 for the time and record that he has been here going back to 09/11/20 Review of Systems Review of Systems: All systems reviewed & are unremarkable except as noted in HPI and below PMFSH Past Medical History Medical History DVT (deep venous thrombosis) Left lower extremity after road trip to [place] 09/14/2020 Gout Hyperlipidemia Hypertension Obesity, morbid, BMI 40.0-49.9 Obstructive sleep apnea on CPAP Pre-diabetes No longer on medications with hemoglobin A1c of 5.04 September 2020 Skin lesion Excised from forearm S
--- NOTE | 2020-10-02 13:42 | PM.CNNEP ---
Assessment and Plan Assessment and plan (1) MARY LOU (acute kidney injury): Code(s): N17.9 - Acute kidney failure, unspecified Status: Acute Assessment and Plan: multifactorial etiology: - prerenal factors - insensible losses from fevers - hypotension/hemodynamic instability - obstruction (although stents were already in place) - infection (UTI) recent imaging noted follow trend of labs and UOP continue current therapy (2) Stage 3a chronic kidney disease: Code(s): N18.31 - Chronic kidney disease, stage 3a Status: Chronic Assessment and Plan: presumed baseline creatinine ~ 1.28 - 1.29mg/dl (from 2017 - 2019) probably due to HTN, age, and vascular disease however, cannot discount a component of disease progression (3) Shock: Code(s): R57.9 - Shock, unspecified Status: Acute Assessment and Plan: better hemodynamics noted did not require pressor therapy holding anti-HTN medications follow trend of hemodynamics (4) UTI (urinary tract infection): Code(s): N39.0 - Urinary tract infection, site not specified Status: Acute Assessment and Plan: E. coli by urine culture on antibiottics (5) Nephrolithiasis: Code(s): N20.0 - Calculus of kidney Status: Acute Assessment and Plan: s/p ureteral stent placement Urology following Will continue to follow. History of Present Illness Reason for Consult Consult date: 10/02/20 Reason for consult: acute renal failure (on chronic kidney disease) Chief Complaint Chief complaint: severe sepsis, UTI acute, acute on chronic renal History of Present Illness Narrative: The patient is a 69-year-old male with a past medical history as outlined below who presented to [facility] ER with fever, chills, and weakness. The patient recently underwent cystoscopy as well as ureteral stent placement for bilateral ureteral stones on 09/20/2020. He had been scheduled to have this procedure done previously but he was recently diagnosed with a acute left lower extremity DVT the required anticoagulation. Hence, his previous cystoscopy was rescheduled while he was on anticoagulation [place] to 09/20/2020. He underwent the procedure without any issue or problem but then presented back to [facility] ER a few days later with low-grade temperatures, cloudy urine, and dysuria. CT scan of the abdomen pelvis at that time demonstrated the same nonobstructive bilateral known kidney stones as well as a right ureteral stent placement in the expected position. He was discharged home on oral antibiotics (Levaquin) with close follow-up with Urology. Unfortunately, despite the oral antibiotic therapy continued to have low-grade fevers chills and weakness and return back to [facility] ER at the behest of his family for further evaluation. Workup and evaluation in the emergency room on this hospitalization demonstrated temperature of 103.5? and despite the fact that he took Tylenol before even came to the ER, his temperature had not seem to improved whatsoever. He continued to have increased frequency of urination and persistent dysuria and given his suboptimal hemodynamics on presentation he was aggressively fluid resuscitated but did have a central line placed due to concerns of sepsis and the possible need for pressor therapy. However since his hospitalization, he has not require any type of initiation of pressor therapy and he was briefly in the intensive care unit and is subsequently be transferred out earlier today. Renal consultation was requested due to his abnormal BUN and creatinine on presentation on this hospitalization in comparison to previous values. I am not entirely sure what the patient's baseline creatinine is however from review of the electronic medical records, he has had a creatinine around 1.28-1.29 since
--- NOTE | 2020-10-02 14:16 | PC.NURSE ---
This patient, Junior Morrow, was transferred to [[id number] ] on 10/02/20 at 1416. Personal belongings sent with patient. Report given to [MARILEE Seay @ [phone] ]. Appropriate documentation sent with patient.
--- NOTE | 2020-10-02 14:39 | PM.IMPN ---
Progress Note: A&P Assessment and Plan (1) Septic shock due to Escherichia coli: Code(s): A41.51 - Sepsis due to Escherichia coli [E. coli]; R65.21 - Severe sepsis with septic shock Status: Acute Assessment and Plan: 10/02/20 14:39 patient is 69-year-old male with history of recurrent kidney stone and recurrent UTI initially patient was seen in emergency department had a CT scan of the abdomen showed bilateral nonobstructing kidney stone and UTI patient was treated with Levaquin and discharged however he presented with a fever of 103 and hypotension, initial urine culture showed resistant to Levaquin sensitive to Rocephin patient was started on Rocephin, and transferred to ICU for hypotension patient was started on IV fluid and responded well and did not require any vasopressor and remained clinically stable, patient with elevated creatinine patient is seen by urologist suspect secondary possibly to nonobstructive ureteral stone will continue to monitor kidney function patient be seen nephrology further recommendation to follow, patient seen by intensive patient is clinically stable will transfer patient out of ICU to medical floor, will continue to monitor. (2) E. coli urinary tract infection: Code(s): N39.0 - Urinary tract infection, site not specified; B96.20 - Unspecified Escherichia coli [E. coli] as the cause of diseases classified elsewhere Status: Acute Assessment and Plan: Plan is above (3) Acute renal failure: Qualifiers: Acute renal failure type: unspecified Qualified Code(s): N17.9 - Acute kidney failure, unspecified Code(s): N17.9 - Acute kidney failure, unspecified Status: Acute Assessment and Plan: Patient be seen by jammer hooker and further recommendation to follow (4) Calculus of proximal right ureter: Code(s): N20.1 - Calculus of ureter Status: Acute Assessment and Plan: Patient was seen by urology (5) Acute deep vein thrombosis (DVT) of left lower extremity: Qualifiers: Affected thrombotic vein of extremity: other lower extremity vein Qualified Code(s): I82.492 - Acute embolism and thrombosis of other specified deep vein of left lower extremity Code(s): I82.402 - Acute embolism and thrombosis of unspecified deep veins of left lower extremity Status: Acute Assessment and Plan: Anticoagulated with Eliquis (6) Hypokalemia: Code(s): E87.6 - Hypokalemia Status: Acute Assessment and Plan: Will monitor and supplement Additional Plan The patient has septic shock based on criteria persistent hypotension despite 30 mL/kilos bolus, leukopenia, and lactic acidosis with lactate of 4 and acute renal failure versus acute on chronic renal failure. The patient received a 30 mL/kilos bolus in the ER and remained hypotensive. A cheetah score was performed which demonstrated the patient should be fluid responsive with 11%. A subsequent 500 mL bolus over an hours ordered. Despite receiving fluid bolus patient remained hypotensive with blood pressures of 85/54. Subsequently have right femoral central line was placed. Subclavian line was not placed as the patient is on anticoagulants with Eliquis. Levophed has been ordered per protocol to titrate for maps of 65-70. Will continue empiric antibiotic therapy with Rocephin. The patient denies a history of chronic kidney disease. His creatinine to his cystoscopy on September 11 was 2.2. His creatinine had improved 1.7 wheezing in the ER on the . Is uncertain what the patient's creatinine is at baseline. Will continue IV fluid hydration and pressor therapy will treat underlying infection. Repeat BMP in a.m.. Monitor urine output closely. Will hold the patient's indomethacin for the for foreseeable future. Will replace patient's potassium of 40 mEq potassium chloride p.o. x1 1 hour spent in critical care activities. This case had a high probability of
--- NOTE | 2020-10-02 15:16 | PC.NURSE ---
This patient, Junior Morrow, was received from [ICU] on 10/02/20 at 1416. Patient/family oriented to unit policies and routines
[2020-10-02] MEDS: LACTATED RINGERS 1,000 ML 75 ML IV CONT (21:01)
[2020-10-03 05:43] VITALS: BP 120/61; PULSE 79; RESP 18; TEMP 37.2; O2SAT 96
[2020-10-03 06:09] LABS: Basophils Percent Auto 0.4 % (0.2-1.2); Eosinophils Absolute Auto 0.1 K/mm3 (0-0.3); Eosinophils Percent Auto 1.2 % (0-4.4); Hematocrit 31.5 % (42.0-52.0); Hemoglobin 10.8 g/dL (14.0-18.0); Immature Granulocyte Absolute 0.03 K/mm3 (0.00-0.031); Immature Granulocyte Percent A 0.4 % (0-0.5); Lymphocytes Absolute Auto 0.57 K/mm3 (0.9-3.2); Lymphocytes Percent Auto 7.6 % (18.3-44.2); Mean Corpuscular HGB Conc 34.3 g/dl (32-36); Mean Corpuscular Hemoglobin 30.5 pg (26-34); Mean Platelet Volume 9.6 fl (7.4-10.4); Monocytes Absolute Auto 0.7 K/mm3 (0.1-0.6); Monocytes Percent Auto 8.8 % (2.6-8.5); Neutrophils Absolute Auto 6.1 K/mm3 (1.3-6.7); Neutrophils Percent Auto 81.6 % (45.5-73.1); Platelet Count Result 131 k/mm3 (150-375); Red Blood Count 3.54 M/mm3 (4.6-6.20); Red Cell Distribution Width 12.9 % (11.5-14.5); White Blood Count 7.5 K/mm3 (4.5-10.0)
[2020-10-03 06:30] LABS: Alanine Aminotransferase 45 U/L (4-50); Alkaline Phosphatase 100 U/L (38-126); Anion Gap 6 mmol/L (8-16); Aspartate Amino Transferase 31 U/L (17-59); Bilirubin,Total 0.4 mg/dL (0.2-1.3); Blood Urea Nitrogen 22 mg/dL (9-20); Carbon Dioxide 27 mmol/L (22-30); Chloride 105 mmol/L (98-107); Estimated CRCL calculation 45 ml/min; Estimated Glomerular Filt Rate 40; Glucose 113 mg/dL (75-110); Magnesium 1.6 mg/dL (1.6-2.3); Potassium 3.5 mmol/L (3.4-5.0); Sodium 138 mmol/L (137-145)
[2020-10-03] MEDS: dilTIAZem HCL CD 180 MG CAP.ER.24H PO (07:35)
[2020-10-03] MEDS: allopurinoL 300 MG TABLET PO (07:35)
[2020-10-03] MEDS: ATORVASTATIN 10 MG TABLET PO (07:36)
[2020-10-03] MEDS: APIXABAN 5 MG TABLET 10 MG PO (07:36)
[2020-10-03] MEDS: POTASSIUM CHLORIDE 20 MEQ TABLET 40 MEQ PO (08:05)
[2020-10-03 09:01] VITALS: O2SAT 92
--- NOTE | 2020-10-03 09:01 | WPDUROPN2 ---
Progress Note: A&P Assessment and Plan (1) Nephrolithiasis: Code(s): N20.0 - Calculus of kidney Status: Acute Assessment and Plan: Will plan to surgically remove when infection has cleared. Dr. Esquivel to see patient tomorrow and disucss plan. (2) Severe sepsis with acute organ dysfunction due to gram-negative bacteria: Code(s): A41.50 - Gram-negative sepsis, unspecified; R65.20 - Severe sepsis without septic shock Status: Acute Assessment and Plan: Continue Ceftriaxone, cultures pending. Appears that the Ceftriaxone which was sensitive on his previous culture is improving his overall infection. Tailor antibiotics to culture results. (3) MARY LOU (acute kidney injury): Code(s): N17.9 - Acute kidney failure, unspecified Status: Acute Assessment and Plan: Improved. Subjective Subjective Date/Time Seen: 10/03/20 09:01 Patient improving very well, he feels much better, does report chills and fever last night around 1800, but nothing since he had Tylenol last night. His WBC is improved to 7.5, vitals are all stable and he is afebrile this morning. He is ambulatory and denies dysuria or hematuria. Cultures are still pending. Review of Systems Cardiovascular: Cardiovascular: Denies chest pain Respiratory: Respiratory: Reports no additional respiratory complaints Gastrointestinal: Gastrointestinal: Denies abdominal pain, Denies nausea and Denies vomiting Genitourinary: Genitourinary: Denies hematuria, Denies dysuria, Denies flank pain, Denies urinary hesitancy, Denies urinary incontinence and Denies urinary urgency Exam Resp: Effort & Inspection: normal respiratory effort Cardio: Rate: regular rate GI: GI Palp: Yes Soft to palpation and No Tenderness to palpation present (GI) : General: Yes no CVA tenderness Extrem: General: no edema Objective Data Vital Signs Vital Signs: Vital Signs - 24 hr 10/02/20 10:00 10/02/20 14:59 10/02/20 15:18 Temperature 98.1 F Pulse Rate 61 65 65 Respiratory Rate 14 16 16 Blood Pressure 106/61 103/51 L Pulse Oximetry 99 98 98 10/02/20 16:15 10/02/20 17:32 10/02/20 18:02 Temperature 99.0 F 99.0 F 98.3 F Pulse Rate Respiratory Rate Blood Pressure Pulse Oximetry 10/02/20 21:42 10/03/20 05:43 Temperature 98.2 F 98.9 F Pulse Rate 88 79 Respiratory Rate 20 18 Blood Pressure 119/56 L 120/61 Pulse Oximetry 98 96 Intake/Output Intake/Output: Intake & Output 09/30/20 10/01/20 10/02/20 10/03/20 23:59 23:59 23:59 23:59 Intake Total 6479.3 1610 Output Total 750 Balance 5729.3 1610 Meds/Results Medications: Active Medications Generic Name Dose Route Start Last Admin Trade Name Freq PRN Reason Stop Dose Admin Allopurinol 300 mg 10/02/20 09:00 10/03/20 07:35 Allopurinol 300 Mg Tablet PO 300 mg DAILY STEFFANIE Administration Apixaban 10 mg 10/02/20 09:00 10/03/20 07:36 Apixaban 5 Mg Tablet PO 11/01/20 09:01 10 mg DAILY STEFFANIE Administration Atorvastatin Calcium 10 mg 10/02/20 09:00 10/03/20 07:36 Atorvastatin 10 Mg Tablet PO 10 mg DAILY STEFFANIE Administration Diltiazem HCl 180 mg 10/02/20 09:00 10/03/20 07:35 Diltiazem Hcl Cd 180 Mg Cap.Er.24h PO 11/01/20 09:01 180 mg DAILY STEFFANIE Administration Ceftriaxone Sodium 2 gm in 100 mls @ 200 mls/hr 10/02/20 21:00 10/02/20 20:54 Rocephin 2 Gm/D5w 100 Ml IVPB 10/07/20 21:29 Infused Q24H STEFFANIE Infusion Ondansetron HCl 4 mg 10/02/20 02:32 Ondansetron Inj 4 Mg/2 Ml Vial IV PUSH Q4H PRN Nausea Radiology Results: ITS Impressions Chest X-Ray 10/02/20 07:23 IMPRESSION: 1. Opacities in the left lower lung zone which could represent atelectasis and/or pneumonia. Abdomen X-Ray 10/02/20 07:38 IMPRESSION: 1. Bilateral nephrolithiasis with unchanged right internal ureteral stent. Abdomen/Pelvis CT 10/02/20 08:10 IMPRESSION: 1. No significant interval change from ivan
--- NOTE | 2020-10-03 11:33 | PM.PNNEP ---
Progress Note: A&P Assessment and Plan (1) MARY LOU (acute kidney injury): Code(s): N17.9 - Acute kidney failure, unspecified Status: Acute Assessment and Plan: multifactorial etiology: - prerenal factors - insensible losses from fevers - hypotension/hemodynamic instability - obstruction (although stents were already in place) - infection (UTI) recent imaging noted follow trend of labs and UOP continue current therapy (2) Stage 3a chronic kidney disease: Code(s): N18.31 - Chronic kidney disease, stage 3a Status: Chronic Assessment and Plan: presumed baseline creatinine ~ 1.28 - 1.29mg/dl (from 2017 - 2019) probably due to HTN, age, and vascular disease however, cannot discount a component of disease progression (3) Shock: Code(s): R57.9 - Shock, unspecified Status: Acute Assessment and Plan: better hemodynamics noted did not require pressor therapy holding anti-HTN medications follow trend of hemodynamics (4) UTI (urinary tract infection): Code(s): N39.0 - Urinary tract infection, site not specified Status: Acute Assessment and Plan: E. coli by urine culture on antibiottics (5) Nephrolithiasis: Code(s): N20.0 - Calculus of kidney Status: Acute Assessment and Plan: s/p ureteral stent placement Urology following Will continue to follow. Subjective Date/time seen: 10/03/20 11:33 Appears to be doing reasonably well at the time of my visit; stable hemodynamics and reasonably urine output noted; no acute events/issues overnight or earlier this AM. Exam Narrative: Exam Narrative: General: WD/WN male in NAD Heart: normal S1 and S2; no rub Lungs: clear to auscultation Abdomen: soft, nontender, nondistended, positive bowel sounds Extremities: no cyanosis or clubbing; 1+ edema Skin: warm and dry Objective Data Vital Signs Vital Signs: Vital Signs Temp Pulse Resp BP Pulse Ox 10/03/20 09:01 92 10/03/20 05:43 37.2 C 79 18 120/61 96 10/02/20 21:42 36.8 C 88 20 119/56 L 98 10/02/20 18:02 36.8 C 10/02/20 17:32 37.2 C 10/02/20 16:15 37.2 C 10/02/20 15:18 65 16 98 10/02/20 14:59 36.7 C 65 16 103/51 L 98 Intake/Output Intake/Output: Intake & Output 09/30/20 10/01/20 10/02/20 10/03/20 23:59 23:59 23:59 23:59 Intake Total 6479.3 1610 Output Total 750 Balance 5729.3 1610 Meds/Results Medications: Active Medications Generic Name Dose Route Start Last Admin Trade Name Freq PRN Reason Stop Dose Admin Allopurinol 300 mg 10/02/20 09:00 10/03/20 07:35 Allopurinol 300 Mg Tablet PO 300 mg DAILY STEFFANIE Administration Apixaban 10 mg 10/02/20 09:00 10/03/20 07:36 Apixaban 5 Mg Tablet PO 11/01/20 09:01 10 mg DAILY STEFFANIE Administration Atorvastatin Calcium 10 mg 10/02/20 09:00 10/03/20 07:36 Atorvastatin 10 Mg Tablet PO 10 mg DAILY STEFFANIE Administration Diltiazem HCl 180 mg 10/02/20 09:00 10/03/20 07:35 Diltiazem Hcl Cd 180 Mg Cap.Er.24h PO 11/01/20 09:01 180 mg DAILY STEFFANIE Administration Ceftriaxone Sodium 2 gm in 100 mls @ 200 mls/hr 10/02/20 21:00 10/02/20 20:54 Rocephin 2 Gm/D5w 100 Ml IVPB 10/07/20 21:29 Infused Q24H STEFFANIE Infusion Ondansetron HCl 4 mg 10/02/20 02:32 Ondansetron Inj 4 Mg/2 Ml Vial IV PUSH Q4H PRN Nausea Radiology Results: ITS Impressions Chest X-Ray 10/02/20 07:23 IMPRESSION: 1. Opacities in the left lower lung zone which could represent atelectasis and/or pneumonia. Abdomen X-Ray 10/02/20 07:38 IMPRESSION: 1. Bilateral nephrolithiasis with unchanged right internal ureteral stent. Abdomen/Pelvis CT 10/02/20 08:10 IMPRESSION: 1. No significant interval change from prior examination with right ureteral stent in expected position. No definite ureteral stones. M
--- NOTE | 2020-10-03 12:39 | PM.IMPN ---
Progress Note: A&P Assessment and Plan (1) Septic shock due to Escherichia coli: Code(s): A41.51 - Sepsis due to Escherichia coli [E. coli]; R65.21 - Severe sepsis with septic shock Status: Acute Assessment and Plan: 10/03/20 12:39 10/02 patient is 69-year-old male with history of recurrent kidney stone and recurrent UTI initially patient was seen in emergency department had a CT scan of the abdomen showed bilateral nonobstructing kidney stone and UTI patient was treated with Levaquin and discharged however he presented with a fever of 103 and hypotension, initial urine culture showed resistant to Levaquin sensitive to Rocephin patient was started on Rocephin, and transferred to ICU for hypotension patient was started on IV fluid and responded well and did not require any vasopressor and remained clinically stable, patient with elevated creatinine patient is seen by urologist suspect secondary possibly to nonobstructive ureteral stone will continue to monitor kidney function patient be seen nephrology further recommendation to follow, patient seen by intensive patient is clinically stable will transfer patient out of ICU to medical floor, will continue to monitor. 10/03 today patient states feeling better denies any abdominal pain nausea or vomiting fever or chills, patient being hydrated with IV fluids to improve patient kidney function however patient appears to have edematous lower extremities, will hold IVF, urine culture is growing E coli sensitivities pending however patient clinically symptoms are improved with Rocephin will follow on urine culture and sensitivity and further recommendation to follow, is seen by Urology recommending to continue present management, will be seen by Nephrology and further recommendation to follow (2) E. coli urinary tract infection: Code(s): N39.0 - Urinary tract infection, site not specified; B96.20 - Unspecified Escherichia coli [E. coli] as the cause of diseases classified elsewhere Status: Acute Assessment and Plan: Plan is above (3) Acute renal failure: Qualifiers: Acute renal failure type: unspecified Qualified Code(s): N17.9 - Acute kidney failure, unspecified Code(s): N17.9 - Acute kidney failure, unspecified Status: Acute Assessment and Plan: Patient be seen by drop machine operator and further recommendation to follow (4) Calculus of proximal right ureter: Code(s): N20.1 - Calculus of ureter Status: Acute Assessment and Plan: Patient was seen by urology (5) Acute deep vein thrombosis (DVT) of left lower extremity: Qualifiers: Affected thrombotic vein of extremity: other lower extremity vein Qualified Code(s): I82.492 - Acute embolism and thrombosis of other specified deep vein of left lower extremity Code(s): I82.402 - Acute embolism and thrombosis of unspecified deep veins of left lower extremity Status: Acute Assessment and Plan: Anticoagulated with Eliquis (6) Hypokalemia: Code(s): E87.6 - Hypokalemia Status: Acute Assessment and Plan: Will monitor and supplement Additional Plan The patient has septic shock based on criteria persistent hypotension despite 30 mL/kilos bolus, leukopenia, and lactic acidosis with lactate of 4 and acute renal failure versus acute on chronic renal failure. The patient received a 30 mL/kilos bolus in the ER and remained hypotensive. A cheetah score was performed which demonstrated the patient should be fluid responsive with 11%. A subsequent 500 mL bolus over an hours ordered. Despite receiving fluid bolus patient remained hypotensive with blood pressures of 85/54. Subsequently have right femoral central line was placed. Subclavian line was not placed as the patient is on anticoagulants with Eliquis. Levophed has been ordered per protocol to titrate for maps of 65-70. Will continue empiric antibiotic therapy with Rocephin. The patien
[2020-10-03 13:50] VITALS: BP 131/66; PULSE 70; RESP 18; TEMP 36.6; O2SAT 98
[2020-10-03] MEDS: ACETAMINOPHEN 325 MG TABLET 650 MG PO (17:17)
[2020-10-03 22:00] VITALS: BP 126/61; PULSE 63; RESP 20; TEMP 37.2; O2SAT 98
[2020-10-03 22:43] VITALS: PULSE 74; RESP 18; O2SAT 95
[2020-10-04 03:33] VITALS: PULSE 64; RESP 20; O2SAT 94
[2020-10-04 06:00] VITALS: BP 122/61; PULSE 65; RESP 20; TEMP 37.2; O2SAT 96
[2020-10-04 06:43] LABS: Hematocrit 34.2 % (42.0-52.0); Hemoglobin 11.6 g/dL (14.0-18.0); Mean Corpuscular HGB Conc 33.9 g/dl (32-36); Mean Corpuscular Hemoglobin 30.5 pg (26-34); Platelet Count Result 125 k/mm3 (150-375); Red Cell Distribution Width 13.1 % (11.5-14.5); White Blood Count 6.2 K/mm3 (4.5-10.0)
[2020-10-04 07:02] LABS: Anion Gap 6 mmol/L (8-16); Blood Urea Nitrogen 21 mg/dL (9-20); Carbon Dioxide 27 mmol/L (22-30); Chloride 107 mmol/L (98-107); Estimated CRCL calculation 58 ml/min; Estimated Glomerular Filt Rate 55; Glucose 99 mg/dL (75-110); Potassium 3.7 mmol/L (3.4-5.0); Sodium 140 mmol/L (137-145)
[2020-10-04] MEDS: APIXABAN 5 MG TABLET 10 MG PO ×2 (09:33→20:25)
[2020-10-04] MEDS: dilTIAZem HCL CD 180 MG CAP.ER.24H PO (09:33)
[2020-10-04] MEDS: allopurinoL 300 MG TABLET PO (09:34)
[2020-10-04] MEDS: ATORVASTATIN 10 MG TABLET PO (09:34)
--- NOTE | 2020-10-04 13:52 | WPDUROPN2 ---
Progress Note: A&P Assessment and Plan (1) Nephrolithiasis: Code(s): N20.0 - Calculus of kidney Status: Acute (2) UTI (urinary tract infection): Code(s): N39.0 - Urinary tract infection, site not specified Status: Acute (3) Shock: Code(s): R57.9 - Shock, unspecified Status: Acute (4) MARY LOU (acute kidney injury): Code(s): N17.9 - Acute kidney failure, unspecified Status: Acute (5) Acute deep vein thrombosis (DVT) of left lower extremity: Qualifiers: Affected thrombotic vein of extremity: other lower extremity vein Qualified Code(s): I82.492 - Acute embolism and thrombosis of other specified deep vein of left lower extremity Code(s): I82.402 - Acute embolism and thrombosis of unspecified deep veins of left lower extremity Status: Acute Additional Plan 69-year-old gentleman is with sepsis secondary to urinary tract infection. He appears to be improving on culture appropriate antibiotics. The patient's right ureteral stent is in place with right ureteral stone now present in the kidney. Patient continues anticoagulation for new left lower extremity DVT -the patient should continue antibiotics per primary team. -the patient's acute renal insufficiency appears to have resolved. Continue in nephrology follow-up -we will plan for definitive stone intervention for his right nephrolithiasis with either a right ureteroscopy or right ESWL. If the patient is able to stop anticoagulation for surgical procedure, we will plan to proceed with ESWL procedure. If unable to stop anticoagulation, a right ureteroscopy will be scheduled. The patient to follow-up with his primary care physician as an outpatient and will plan procedure in the coming weeks. The patient will need a repeat urine culture prior to surgical intervention stone disease to ensure clearance of his current infection Subjective Subjective Date/Time Seen: 10/04/20 13:52 Patient states he is feeling much better Exam Narrative: Exam Narrative: Patient is awake and alert no acute distress, his breathing is unlabored. His abdomen is soft nontender nondistended. Extremities do show bilateral edema left more than right. Const: General: cooperative and healthy appearing Objective Data Vital Signs Vital Signs: Vital Signs - 24 hr 10/03/20 22:00 10/03/20 22:43 10/04/20 03:33 Temperature 37.2 C Pulse Rate 63 74 64 Respiratory Rate 20 18 20 Blood Pressure 126/61 Pulse Oximetry 98 95 94 10/04/20 06:00 Temperature 37.2 C Pulse Rate 65 Respiratory Rate 20 Blood Pressure 122/61 Pulse Oximetry 96 Intake/Output Intake/Output: Intake & Output 10/01/20 10/02/20 10/03/20 10/04/20 23:59 23:59 23:59 23:59 Intake Total 6479.3 3750 440 Output Total 750 Balance 5729.3 3750 440 Meds/Results Medications: Active Medications Generic Name Dose Route Start Last Admin Trade Name Freq PRN Reason Stop Dose Admin Acetaminophen 650 mg 10/03/20 17:12 10/03/20 17:17 Acetaminophen 325 Mg Tablet PO 650 mg Q6H PRN Administration Mild Pain (1-3) or Fever Allopurinol 300 mg 10/02/20 09:00 10/04/20 09:34 Allopurinol 300 Mg Tablet PO 300 mg DAILY STEFFANIE Administration Apixaban 10 mg 10/02/20 09:00 10/04/20 09:33 Apixaban 5 Mg Tablet PO 11/01/20 09:01 10 mg DAILY STEFFANIE Administration Atorvastatin Calcium 10 mg 10/02/20 09:00 10/04/20 09:34 Atorvastatin 10 Mg Tablet PO 10 mg DAILY STEFFANIE Administration Diltiazem HCl 180 mg 10/02/20 09:00 10/04/20 09:33 Diltiazem Hcl Cd 180 Mg Cap.Er.24h PO 11/01/20 09:01 180 mg DAILY STEFFANIE Administration Ceftriaxone Sodium 2 gm in 100 mls @ 200 mls/hr 10/02/20 21:00 10/03/20 20:16 Rocephin 2 Gm/D5w 100 Ml IVPB 10/07/20 21:29 Infused Q24H STEFFANIE Infusion Ondansetron HCl 4 mg 10/02/20 02:32 Ondansetron Inj 4 Mg/2 Ml Vial IV PUSH Q4H PRN Nausea Radiology Results: ITS Impressions Ches
[2020-10-04 14:00] VITALS: BP 130/69; PULSE 65; RESP 20; TEMP 36.2; O2SAT 98
--- NOTE | 2020-10-04 14:22 | PM.PNNEP ---
Progress Note: A&P Assessment and Plan (1) MARY LOU (acute kidney injury): Code(s): N17.9 - Acute kidney failure, unspecified Status: Acute Assessment and Plan: multifactorial etiology: - prerenal factors - insensible losses from fevers - hypotension/hemodynamic instability - obstruction (although stents were already in place) - infection/sepsis (UTI/urosepsis) recent imaging noted follow trend of labs and UOP continue current therapy (2) Stage 3a chronic kidney disease: Code(s): N18.31 - Chronic kidney disease, stage 3a Status: Chronic Assessment and Plan: presumed baseline creatinine ~ 1.28 - 1.29mg/dl (from 2017 - 2019) probably due to HTN, age, and vascular disease however, cannot discount a component of disease progression (3) Shock: Code(s): R57.9 - Shock, unspecified Status: Acute Assessment and Plan: better hemodynamics noted did not require pressor therapy holding anti-HTN medications follow trend of hemodynamics (4) UTI (urinary tract infection): Code(s): N39.0 - Urinary tract infection, site not specified Status: Acute Assessment and Plan: E. coli by urine culture; blood cultures with E.coli as well on antibiotics (5) Nephrolithiasis: Code(s): N20.0 - Calculus of kidney Status: Acute Assessment and Plan: s/p ureteral stent placement Urology following Will continue to follow -- not opposed to discharge from renal perspective if otherwise medically stable. Subjective Date/time seen: 10/04/20 14:22 Appears to be doing reasonably well at this time; no apparent issues or problems to report; no events overnight or earlier this AM; no distress or other complaints voiced Exam Narrative: Exam Narrative: General: WD/WN male in NAD Heart: normal S1 and S2; no rub Lungs: clear to auscultation Abdomen: soft, nontender, nondistended, positive bowel sounds Extremities: no cyanosis or clubbing; trace edema Skin: warm and intact Objective Data Vital Signs Vital Signs: Vital Signs Temp Pulse Resp BP Pulse Ox 10/04/20 14:00 36.2 C L 65 20 130/69 98 10/04/20 06:00 37.2 C 65 20 122/61 96 10/04/20 03:33 64 20 94 10/03/20 22:43 74 18 95 10/03/20 22:00 37.2 C 63 20 126/61 98 Intake/Output Intake/Output: Intake & Output 10/01/20 10/02/20 10/03/20 10/04/20 23:59 23:59 23:59 23:59 Intake Total 6479.3 3750 680 Output Total 750 Balance 5729.3 3750 680 Meds/Results Medications: Active Medications Generic Name Dose Route Start Last Admin Trade Name Freq PRN Reason Stop Dose Admin Acetaminophen 650 mg 10/03/20 17:12 10/03/20 17:17 Acetaminophen 325 Mg Tablet PO 650 mg Q6H PRN Administration Mild Pain (1-3) or Fever Allopurinol 300 mg 10/02/20 09:00 10/04/20 09:34 Allopurinol 300 Mg Tablet PO 300 mg DAILY STEFFANIE Administration Apixaban 10 mg 10/02/20 09:00 10/04/20 09:33 Apixaban 5 Mg Tablet PO 11/01/20 09:01 10 mg DAILY STEFFANIE Administration Atorvastatin Calcium 10 mg 10/02/20 09:00 10/04/20 09:34 Atorvastatin 10 Mg Tablet PO 10 mg DAILY STEFFANIE Administration Diltiazem HCl 180 mg 10/02/20 09:00 10/04/20 09:33 Diltiazem Hcl Cd 180 Mg Cap.Er.24h PO 11/01/20 09:01 180 mg DAILY STEFFANIE Administration Ceftriaxone Sodium 2 gm in 100 mls @ 200 mls/hr 10/02/20 21:00 10/03/20 20:16 Rocephin 2 Gm/D5w 100 Ml IVPB 10/07/20 21:29 Infused Q24H STEFFANIE Infusion Ondansetron HCl 4 mg 10/02/20 02:32 Ondansetron Inj 4 Mg/2 Ml Vial IV PUSH Q4H PRN Nausea Radiology Results: ITS Impressions Chest X-Ray 10/02/20 07:23 IMPRESSION: 1. Opacities in the left lower lung zone which could represent atelectasis and/or pneumonia. Abdomen X-Ray 10/02/20 07:38 IMPRESSION: 1. Bilateral nephrolithiasis with unchanged r
--- NOTE | 2020-10-04 16:20 | PM.IMPN ---
Progress Note: A&P Assessment and Plan (1) Septic shock due to Escherichia coli: Code(s): A41.51 - Sepsis due to Escherichia coli [E. coli]; R65.21 - Severe sepsis with septic shock Status: Acute Assessment and Plan: 10/04/20 16:20 10/02 patient is 69-year-old male with history of recurrent kidney stone and recurrent UTI initially patient was seen in emergency department had a CT scan of the abdomen showed bilateral nonobstructing kidney stone and UTI patient was treated with Levaquin and discharged however he presented with a fever of 103 and hypotension, initial urine culture showed resistant to Levaquin sensitive to Rocephin patient was started on Rocephin, and transferred to ICU for hypotension patient was started on IV fluid and responded well and did not require any vasopressor and remained clinically stable, patient with elevated creatinine patient is seen by urologist suspect secondary possibly to nonobstructive ureteral stone will continue to monitor kidney function patient be seen nephrology further recommendation to follow, patient seen by intensive patient is clinically stable will transfer patient out of ICU to medical floor, will continue to monitor. 10/03 today patient states feeling better denies any abdominal pain nausea or vomiting fever or chills, patient being hydrated with IV fluids to improve patient kidney function however patient appears to have edematous lower extremities, will hold IVF, urine culture is growing E coli sensitivities pending however patient clinically symptoms are improved with Rocephin will follow on urine culture and sensitivity and further recommendation to follow, is seen by Urology recommending to continue present management, will be seen by Nephrology and further recommendation to follow 10/04 patient states doing better denies any abdominal pain nausea or vomiting fever or chills, today his kidney function is improved to his baseline and was seen by director dental services, patient was seen by his urologist and right ureteral stent is in place, will patient has sepsis with E coli patient will receive IV antibiotic total of 10 days, plan is to discharge the patient home tomorrow and received his IV antibiotics at home, 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 coli urinary tract infection: Code(s): N39.0 - Urinary tract infection, site not specified; B96.20 - Unspecified Escherichia coli [E. coli] as the cause of diseases classified elsewhere Status: Acute Assessment and Plan: Plan is above (3) Acute renal failure: Qualifiers: Acute renal failure type: unspecified Qualified Code(s): N17.9 - Acute kidney failure, unspecified Code(s): N17.9 - Acute kidney failure, unspecified Status: Acute Assessment and Plan: Patient be seen by director dental services and further recommendation to follow (4) Calculus of proximal right ureter: Code(s): N20.1 - Calculus of ureter Status: Acute Assessment and Plan: Patient was seen by urology (5) Acute deep vein thrombosis (DVT) of left lower extremity: Qualifiers: Affected thrombotic vein of extremity: other lower extremity vein Qualified Code(s): I82.492 - Acute embolism and thrombosis of other specified deep vein of left lower extremity Code(s): I82.402 - Acute embolism and thrombosis of unspecified deep veins of left lower extremity Status: Acute Assessment and Plan: Anticoagulated with Eliquis (6) Hypokalemia: Code(s): E87.6 - Hypokalemia Status: Acute Assessment and Plan: Will monitor and supplement Subjective Date/time seen: 10/04/20 16:20 10/02 patient is 69-year-old male with history of recurrent kidney stone and recurrent UTI initially patient was seen in emergency department had a CT scan of the a
[2020-10-04 20:00] VITALS: PULSE 73; RESP 18; O2SAT 98
[2020-10-04 22:03] VITALS: BP 148/65; PULSE 73; RESP 18; TEMP 37.5; O2SAT 98
[2020-10-05 01:50] VITALS: PULSE 73; RESP 20; O2SAT 97
[2020-10-05 05:43] VITALS: BP 138/69; PULSE 62; RESP 20; TEMP 36.7; O2SAT 99
[2020-10-05 07:08] LABS: Hematocrit 35.3 % (42.0-52.0); Hemoglobin 11.9 g/dL (14.0-18.0); Mean Corpuscular HGB Conc 33.7 g/dl (32-36); Mean Corpuscular Hemoglobin 30.1 pg (26-34); Mean Corpuscular Volume 89.1 fl (80-100); Mean Platelet Volume 10.3 fl (7.4-10.4); Platelet Count Result 145 k/mm3 (150-375); Red Blood Count 3.96 M/mm3 (4.6-6.20); Red Cell Distribution Width 12.9 % (11.5-14.5); White Blood Count 5.5 K/mm3 (4.5-10.0)
[2020-10-05 07:24] LABS: Anion Gap 10 mmol/L (8-16); Blood Urea Nitrogen 20 mg/dL (9-20); Calcium 8.6 mg/dL (8.4-10.2); Carbon Dioxide 26 mmol/L (22-30); Chloride 105 mmol/L (98-107); Estimated CRCL calculation 58 ml/min; Estimated Glomerular Filt Rate 55; Glucose 100 mg/dL (75-110); Potassium 3.7 mmol/L (3.4-5.0); Sodium 141 mmol/L (137-145)
[2020-10-05] MEDS: ATORVASTATIN 10 MG TABLET PO (08:57)
[2020-10-05] MEDS: dilTIAZem HCL CD 180 MG CAP.ER.24H PO (08:57)
[2020-10-05] MEDS: APIXABAN 5 MG TABLET 10 MG PO (08:57)
[2020-10-05] MEDS: allopurinoL 300 MG TABLET PO (08:57)
[2020-10-05] MEDS: LIDOCAINE HCL 1% LOCAL INJ 2 ML AMPUL 5 ML INFILTRATE (11:00)
--- NOTE | 2020-10-05 11:18 | PM.DS ---
DS: Admitting Diagnosis Admitting Diagnosis Admitting Diagnosis: Chief Complaint: Fever DS: Discharge Diagnosis Discharge Diagnosis (1) Septic shock due to Escherichia coli: Code(s): A41.51 - Sepsis due to Escherichia coli [E. coli]; R65.21 - Severe sepsis with septic shock Status: Acute Assessment and Plan: 10/04/20 16:20 10/02 patient is 69-year-old male with history of recurrent kidney stone and recurrent UTI initially patient was seen in emergency department had a CT scan of the abdomen showed bilateral nonobstructing kidney stone and UTI patient was treated with Levaquin and discharged however he presented with a fever of 103 and hypotension, initial urine culture showed resistant to Levaquin sensitive to Rocephin patient was started on Rocephin, and transferred to ICU for hypotension patient was started on IV fluid and responded well and did not require any vasopressor and remained clinically stable, patient with elevated creatinine patient is seen by urologist suspect secondary possibly to nonobstructive ureteral stone will continue to monitor kidney function patient be seen nephrology further recommendation to follow, patient seen by intensive patient is clinically stable will transfer patient out of ICU to medical floor, will continue to monitor. 10/03 today patient states feeling better denies any abdominal pain nausea or vomiting fever or chills, patient being hydrated with IV fluids to improve patient kidney function however patient appears to have edematous lower extremities, will hold IVF, urine culture is growing E coli sensitivities pending however patient clinically symptoms are improved with Rocephin will follow on urine culture and sensitivity and further recommendation to follow, is seen by Urology recommending to continue present management, will be seen by Nephrology and further recommendation to follow 10/04 patient states doing better denies any abdominal pain nausea or vomiting fever or chills, today his kidney function is improved to his baseline and was seen by fashion stylist, patient was seen by his urologist and right ureteral stent is in place, will patient has sepsis with E coli patient will receive IV antibiotic total of 10 days, plan is to discharge the patient home tomorrow and received his IV antibiotics at home, 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 coli urinary tract infection: Code(s): N39.0 - Urinary tract infection, site not specified; B96.20 - Unspecified Escherichia coli [E. coli] as the cause of diseases classified elsewhere Status: Acute Assessment and Plan: Plan is above (3) Acute renal failure: Qualifiers: Acute renal failure type: unspecified Qualified Code(s): N17.9 - Acute kidney failure, unspecified Code(s): N17.9 - Acute kidney failure, unspecified Status: Acute Assessment and Plan: Patient be seen by fashion stylist and further recommendation to follow (4) Calculus of proximal right ureter: Code(s): N20.1 - Calculus of ureter Status: Acute Assessment and Plan: Patient was seen by urology (5) Acute deep vein thrombosis (DVT) of left lower extremity: Qualifiers: Affected thrombotic vein of extremity: other lower extremity vein Qualified Code(s): I82.492 - Acute embolism and thrombosis of other specified deep vein of left lower extremity Code(s): I82.402 - Acute embolism and thrombosis of unspecified deep veins of left lower extremity Status: Acute Assessment and Plan: Anticoagulated with Eliquis (6) Hypokalemia: Code(s): E87.6 - Hypokalemia Status: Acute Assessment and Plan: Will monitor and supplement DS: Summary Hospital Course Reason for hospitalization: Chief Complaint: Fever Narrative: 69-year-old male w
--- NOTE | 2020-10-05 11:51 | PCNFU ---
Nutrition Follow-Up Complete: Involuntary weight loss related to decreased appetite as evidenced by reported and documented weight loss (7% body weight loss over 7 months prior to admission). Goal: Patient to consume 75% of meals or greater. Patient has met goal. No new goal. Pt current nutrition is Regular. Last recorded weight is 115.5 kg, up from 108.5 kg on admit. Bowel Motility:+BM reported 10/04 Labs Reviewed:GFR 55,Hct 35.3,Hgb 11.9 Meds Noted:Eliquis,Lipitor,Cardizem,Rocephin,Zyloprim. Additional Notes: Nutrition follow up. Patient is currently on a regular diet. Oral Intake: 100% of meals. He states to no diet concerns. Plans for discharge today. Follow up in 7 days.
== END 2020-10-05 12:30 | disposition home or self-care (01) | DRG 872 ==
LOC: ANHED 10-02 02:44 → ANHICU 10-02 04:10 → ANH3MEDSUR 10-04 11:21 → ANHICU 10-09 16:09
PROVIDERS: Admitting Provider Internal Medicine; Emergency Provider General Practice; PCP Physician Assistant; Visit Provider Family Medicine
DX: A41.51 Sepsis due to Escherichia coli [E. coli] (principal); N13.6 Pyonephrosis; Z16.23 Resistance to quinolones and fluoroquinolones; N17.9 Acute kidney failure, unspecified; I82.492 Acute embolism and thrombosis of other specified deep vein of left lower extremity; E87.2 Acidosis; R65.20 Severe sepsis without septic shock; E87.6 Hypokalemia; N18.31 Chronic kidney disease, stage 3a; I12.9 Hypertensive chronic kidney disease with stage 1 through stage 4 chronic kidney disease, or unspecified chronic kidney disease; E11.22 Type 2 diabetes mellitus with diabetic chronic kidney disease; E78.5 Hyperlipidemia, unspecified; G47.33 Obstructive sleep apnea (adult) (pediatric); E66.01 Morbid (severe) obesity due to excess calories; Z68.39 Body mass index [BMI] 39.0-39.9, adult; Z86.718 Personal history of other venous thrombosis and embolism; Z79.01 Long term (current) use of anticoagulants
CPT/HCPCS: 36415; 36569; 71045; 74018; 74176; 80048; 80053; 81001; 83605; 83735; 85025; 85027; 85610; 85730; 86140; 87040; 87077; 87086; 87088; 87186; 93005; 96361; 96365; 97161; 97165; 99285; A9270; C1751; J0131; J0696; J7030; J7040; J7120

== ENCOUNTER 2020-11-28 09:24 | Outpatient (CLI) | payer OTHER, SELFPAY ==
--- NOTE | ~2020-11-28 | XR_ITS ---
EXAMINATION: XR abdomen/kub 1V INDICATION: Right ureteral stone TECHNIQUE: Supine views of the abdomen were obtained on 2 radiographs. COMPARISON: 10/02/2020 FINDINGS: The right internal ureteral stent has been removed. There are multiple phleboliths of the p tim. A 7 mm stone is present in the right kidney lower pole. Stones measuring up to 7 mm are noted in the left kidney. No stones are identified along the expected courses of the ureters or within the urinary bladder. There are multiple gas-filled loops of mildly dilated small bowel. There is a large volume of colonic stool. There is mild osteoarthritis of the hips. IMPRESSION: 1. Bilateral nephrolithiasis without definite ureteral stone identified. 2. Mildly dilated loops of small bowel in the mid abdomen which could reflect ileus or partial obstru ction. These findings were discussed with Dr. Ailyn MD at 1208 hours on 11/28/2020. Reviewed, dictated and finalized at location A. IMPRESSION: 1. Bilateral nephrolithiasis without definite ureteral stone identified. 2. Mildly dilated loops of small bowel in the mid abdomen which could reflect i leus or partial obstruction. These findings were discussed with Dr. Ailyn MD at 1208 hours on 11/28/2020.
== END 2020-11-28 09:25 | disposition home or self-care (01) ==
PROVIDERS: PCP Physician Assistant; Visit Provider Urology
DX: N20.2 Calculus of kidney with calculus of ureter (principal)
CPT/HCPCS: 74018

== ENCOUNTER 2020-12-12 12:31 | Outpatient (CLI) | payer OTHER, SELFPAY ==
--- NOTE | ~2020-12-12 | CT_ITS ---
EXAMINATION: CT abdomen pelvis wo/w con DATE: 12/12/2020 13:29 INDICATION: Ileus. Abdomen pain. TECHNIQUE: Computed tomography (CT) of the abdomen and pelvis was performed without and with 130 cc O mnipaque 350 intravenous contrast. The dose-length product was 2863.14 mGy-cm. Automated exposure con trol and iterative reconstruction technique were employed. COMPARISON: None. FINDINGS: Lung bases are unremarkable. Heart size normal. No significant pleural or pericardial effus ion. There is atherosclerosis without evidence for aneurysm. The liver, spleen, pancreas, adrenal gla nds are unremarkable. No lymphadenopathy. Prostate gland mildly enlarged. There is bladder wall thick ening. There is a urachal remnant. Nonobstructive bowel gas pattern. Gallbladder is present. There ar e multiple nonobstructing bilateral renal stones. There are bilateral renal cysts, largest in the rig ht kidney measuring 5.2 cm. 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 Normal appendix. IMPRESSION: 1. Nonobstructing bilateral nephrolithiasis. 2: Bladder wall thickening which may be due to outlet obstruction from enlarged prostate gland and/o r cystitis. 3: Severe lumbar spondylosis. Reviewed, dictated and finalized at location B. IMPRESSION: 1. Nonobstructing bilateral nephrolithiasis. 2: Bladder wall thickening which may be due to outlet obstruction from enlarge d prostate gland and/or cystitis. 3: Severe lumbar spondylosis.
[2020-12-12 13:03] LABS: Estimated Glomerular Filt Rate 46
== END 2020-12-12 12:32 | disposition home or self-care (01) ==
PROVIDERS: PCP Physician Assistant; Visit Provider Urology
DX: K56.7 Ileus, unspecified (principal); M47.896 Other spondylosis, lumbar region; N20.0 Calculus of kidney
CPT/HCPCS: 74178; Q9967

== ENCOUNTER → 2021-03-24 00:46 | Outpatient (CLI) | payer MEDICARE, SELFPAY ==
[2021-03-24 18:09] LABS: SARS-CoV-2 RNA PCR Negative
== END ==
PROVIDERS: PCP Physician Assistant; Visit Provider Family Medicine
DX: Z20.822 Contact with and (suspected) exposure to COVID-19 (principal); J06.9 Acute upper respiratory infection, unspecified
CPT/HCPCS: C9803; U0003; U0005

== ENCOUNTER 2021-05-01 15:11 | Outpatient (CLI) | payer MEDICARE, SELFPAY ==
--- NOTE | ~2021-05-01 | US_ITS ---
EXAMINATION:US venous doppler LE LT INDICATION:Acute embolism. History of DVT. TECHNIQUE: Multiple grayscale, color flow and Doppler images of the left lower extremity deep venous systems were obtained and reviewed. COMPARISON:No prior studies for comparison. FINDINGS: The common femoral, superficial femoral and popliteal veins demonstrate normal respiratory variation, augmentation and compressibility. Color flow is also seen within the posterior tibial, pe roneal, greater saphenous and profunda veins. IMPRESSION: 1: No left lower extremity deep venous thrombosis. Reviewed, dictated and finalized at location A.
== END 2021-05-01 15:12 | disposition home or self-care (01) ==
LOC: ANHIMG 15:12
PROVIDERS: PCP Family Medicine; Visit Provider Physician Assistant
DX: I82.492 Acute embolism and thrombosis of other specified deep vein of left lower extremity (principal)
CPT/HCPCS: 93971

== ENCOUNTER 2021-05-24 01:58 | Day surgery (SDC) | payer MEDICARE, SELFPAY ==
[2021-05-10 13:20] VITALS: BMI 44.4
[2021-05-24 06:59] VITALS: BP 157/75; PULSE 55; RESP 18; TEMP 36.3; O2SAT 97
[2021-05-24] MEDS: LACTATED RINGERS 1,000 ML 150 ML IV CONT (07:07)
--- NOTE | 2021-05-24 07:24 | WPDGICN ---
Assessment and Plan Assessment and plan (1) History of colon polyps: Code(s): Z86.010 - Personal history of colonic polyps Status: Acute Assessment and Plan: Patient has a history of colon polyps. For this reason patient presents for screening colonoscopy. GI Consult Note Consult date/time: 05/24/21 07:24 HPI: Junior Morrow is a 70 year old male Presents for screening colonoscopy. Patient has a prior history of colon polyps. Most recently 2018. Patient reports that his bowel movements are somewhat irregular. He denies any blood in his stools. He has no abdominal pain. Family history is noncontributory. Review of Systems Review of Systems: All systems reviewed & are unremarkable except as noted in HPI and below PMFSH Past Medical History Medical History (Updated 05/24/21 @ 07:26 by Clifford Hernandez MD) DVT (deep venous thrombosis) Left lower extremity after road trip to [place] 09/14/2020 Gout Hyperlipidemia Hypertension Obesity, morbid, BMI 40.0-49.9 Obstructive sleep apnea on CPAP Pre-diabetes No longer on medications with hemoglobin A1c of 5.04 September 2020 Skin lesion Excised from forearm Surgical History Surgical History S/P ureteral stent placement (09/20/20) Right ureteral stent placed by Dr. Roy Family History Family History Father Acute myocardial infarction Heart disease Social History Social History Social History: He lives in [place] with his . 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 He has 4 daughters who are healthy. He drinks 2 alcoholic beverages a day. Primary care provider: Balta Pickens Code status: Full code Surrogate decision maker: Smoking status: Never smoker Second hand tobacco smoke exposure: No Alcohol intake: current Drinks per week: 10 Alcohol use details: On occasion. Substance use: never Substance use type: does not use Living arrangements: with family Gender identity (if verbalized by the patient): Male Spiritual care concerns: No Meds Home Medications and Allergies Home Medications Medication Instructions Recorded Confirmed Type allopurinol 300 mg tablet 300 mg PO DAILY tablet 09/14/20 05/24/21 History diltiazem HCl 180 mg 180 mg PO DAILY #90 cap 03/06/21 05/24/21 Rx capsule,extended release 24 hr atorvastatin 20 mg PO DAILY 05/10/21 05/24/21 History indomethacin 50 mg PO TID PRN 05/10/21 05/24/21 History losartan 50 mg tablet 50 mg PO DAILY #90 tablet 05/14/21 05/24/21 Rx metoprolol succinate 50 mg 50 mg PO DAILY #90 tablet 05/14/21 05/24/21 Rx tablet,extended release 24 hr Allergies Allergy/AdvReac Type Severity Reaction Status Date / Time CIELO Inhibitors Allergy Mild Cough Verified 05/24/21 06:57 Vital Signs Vital Signs - 24 hr 05/24/21 06:59 Temperature 97.3 F L Pulse Rate 55 L Respiratory Rate 18 Blood Pressure 157/75 H Pulse Oximetry 97 Exam Narrative: Physical exam reveals patient be alert. Vital signs stable. HEENT exam is unremarkable. Patient is anicteric. Lungs are clear to auscultation and percussion. Heart is without murmur or extra sounds. Abdomen bowel sounds are present soft nontender modestly obese no organomegaly. Digital external rectal exam is normal.
--- NOTE | 2021-05-24 07:57 | WPDANESEPP ---
Anes - Eval Pre Procedure Procedure: Operation Date: 05/24/21 08:00 Proposed Procedures p Screening Colonoscopy - Clifford Hernandez MD Date/Time: 05/24/21 07:57 Pre Op Diagnosis: hx of colon polyps Patient Data Age: 70 Gender: M Height: 1.68 m Weight: 125.3 kg Last Vital Signs Temp 97.3 F L 05/24/21 06:59 Pulse 55 L 05/24/21 06:59 Resp 18 05/24/21 06:59 BP 157/75 H 05/24/21 06:59 Pulse Ox 97 05/24/21 06:59 Allergies Allergy/AdvReac Type Severity Reaction Status Date / Time CIELO Inhibitors Allergy Mild Cough Verified 05/24/21 06:57 Home Medications Medication Instructions Recorded Confirmed Type allopurinol 300 mg tablet 300 mg PO DAILY tablet 09/14/20 05/24/21 History diltiazem HCl 180 mg 180 mg PO DAILY #90 cap 03/06/21 05/24/21 Rx capsule,extended release 24 hr atorvastatin 20 mg PO DAILY 05/10/21 05/24/21 History indomethacin 50 mg PO TID PRN 05/10/21 05/24/21 History losartan 50 mg tablet 50 mg PO DAILY #90 tablet 05/14/21 05/24/21 Rx metoprolol succinate 50 mg 50 mg PO DAILY #90 tablet 05/14/21 05/24/21 Rx tablet,extended release 24 hr Patient hx anesthesia problems: none Family hx anesthesia problems: none Results Review: All pre-operative results and documents have been reviewed as part of the pre-operative evaluation. [facility] Past Medical History Medical History (Updated 05/24/21 @ 07:26 by Clifford Hernandez MD) DVT (deep venous thrombosis) Left lower extremity after road trip to [place] 09/14/2020 Gout Hyperlipidemia Hypertension Obesity, morbid, BMI 40.0-49.9 Obstructive sleep apnea on CPAP Pre-diabetes No longer on medications with hemoglobin A1c of 5.04 September 2020 Skin lesion Excised from forearm Surgical History Surgical History S/P ureteral stent placement (09/20/20) Right ureteral stent placed by Dr. Roy Family History Family History Father Acute myocardial infarction Heart disease Social History Social History Social History: He lives in [place] with his . 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 He has 4 daughters who are healthy. He drinks 2 alcoholic beverages a day. Primary care provider: Balta Pickens Code status: Full code Surrogate decision maker: Smoking status: Never smoker Second hand tobacco smoke exposure: No Alcohol intake: current Drinks per week: 10 Alcohol use details: On occasion. Substance use: never Substance use type: does not use Living arrangements: with family Gender identity (if verbalized by the patient): Male Spiritual care concerns: No Exam Day of Procedure 05/24/21 07:57 Patient weight: normal and morbidly obese Heart: regular rate and rhythm Lungs: clear to auscultation and normal air movement Airway: Mallampati scale Neurological: alert and oriented
--- NOTE | 2021-05-24 08:05 | WPDANESEFPP ---
Anes - Eval Final PreProcedure Day of Procedure 05/24/21 08:05 Patient weight: morbidly obese Heart: regular rate and rhythm Lungs: clear to auscultation and normal air movement Airway: Mallampati scale class II Neurological: alert and oriented Last oral intake: >/= 8 hours ASA classification: III Emergent: no Anesthetic plan: proceed Anesthesia type and monitoring: general GIVS Results Review: All pre-operative results and documents have been reviewed as part of the pre-operative evaluation. Informed Consent: The patient's anesthetic plan and its attendant risks and benefits were discussed with the patient/family/POA. Questions were solicited and answers provided to the satisfaction of the patient/family/POA.
--- NOTE | 2021-05-24 08:25 | SUR.OPER ---
DR PHAN INFORMED RECTAL POLYP NOT RETRIEVED TO SEND FOR PATHOLOGY. MARILEE HAGER & Hemanth LEDBETTER RN. 05/24/2021 @ 0825.
[2021-05-24 08:27] VITALS: BP 113/67; PULSE 50; RESP 18; O2SAT 97
[2021-05-24 08:37] VITALS: BP 125/68; PULSE 54; RESP 18; O2SAT 97
[2021-05-24 08:47] VITALS: BP 138/79; PULSE 53; RESP 18; O2SAT 99
== END 2021-05-24 09:00 | disposition home or self-care (01) ==
PROVIDERS: PCP Family Medicine; Visit Provider Internal Medicine Gastroenterology
PROC: 0DJD8ZZ Inspection of Lower Intestinal Tract, Via Natural or Artificial Opening Endoscopic (ICD-10-PCS; CPT 45378; principal; 2021-05-24 08:00)
DX: Z12.11 Encounter for screening for malignant neoplasm of colon (principal); K62.1 Rectal polyp; E66.01 Morbid (severe) obesity due to excess calories; Z68.41 Body mass index [BMI] 40.0-44.9, adult; Z86.718 Personal history of other venous thrombosis and embolism; M10.9 Gout, unspecified; E78.5 Hyperlipidemia, unspecified; R73.03 Prediabetes
CPT/HCPCS: 45385; J2405; J2704; J7120

== ENCOUNTER 2021-09-19 10:04 | Outpatient (CLI) | payer MEDICARE, SELFPAY ==
--- NOTE | ~2021-09-19 | CT_ITS ---
EXAMINATION: CT abdomen pelvis wo con DATE: 09/19/2021 10:24 INDICATION: Right ureteral stone. TECHNIQUE: Computed tomography (CT) of the abdomen and pelvis was performed without intravenous contr ast. Automated exposure control and iterative reconstruction technique were employed. The dose-length product was 710.19 mGy-cm. COMPARISON: CT abdomen and pelvis 12/12/2020 FINDINGS: The visualized portions of the lung bases demonstrate mild atelectasis. No pleural effusion . The heart size is normal. There are coronary artery calcifications. No pericardial effusion. The li erna, gallbladder, spleen, pancreas, and adrenal glands are normal. There are cysts in the kidneys ruthie suring up to 5.3 cm on the right. There are approximately 8 stones in right kidney measuring up to 5 mm. There are approximately 8 stones in left kidney measuring up to 7 mm. There is mild left hydronep hrosis. There is asymmetric edema around left kidney. There is a 5 mm stone in proximal left ureter. The prostate is mildly enlarged. There are no dilated loops of bowel. The appendix is normal. There i s a small sliding hiatal hernia. There is chronic mild fat stranding at the root of the small bowel m esentery, consistent with mesenteric panniculitis. There are no pathologically enlarged lymph nodes. There is no free intraperitoneal fluid. There is severe lumbar spondylosis. There are chronic bilater al L3 pars defects with 6 mm anterolisthesis of L3 on L4. There are bridging endplate osteophytes at multiple levels in the spine, consistent with diffuse idiopathic skeletal hyperostosis (DISH). IMPRESSION: 1. 5 mm stone in proximal left ureter with mild left hydronephrosis. 2. Bilateral nonobstructing kidney stones. Reviewed, dictated and finalized at location A.
== END 2021-09-19 10:05 | disposition home or self-care (01) ==
PROVIDERS: PCP Family Medicine; Visit Provider Urology
DX: N20.2 Calculus of kidney with calculus of ureter (principal)
CPT/HCPCS: 74176

== ENCOUNTER 2021-09-19 11:04 | Day surgery (SDC) | payer MEDICARE, SELFPAY ==
--- NOTE | ~2021-09-19 | XR_ITS ---
EXAMINATION: XR retrograde pyelo w/stent LT DATE: 09/19/2021 12:29 INDICATION: Left internal ureteral stent TECHNIQUE: Fluoroscopic images from a left internal ureteral stent placement are submitted for review . 15 seconds of fluoroscopy time. FINDINGS: There is a left double-J internal ureteral stent projecting in expected position, with proximal [place] loop at the level of the renal pelvis and distal loop in the pelvis within the bladder lumen. IMPRESSION: 1. Left internal ureteral stent placement. Please refer to real-time procedural findings for detail s. Reviewed, dictated and finalized at location B. IMPRESSION: 1. Left internal ureteral stent placement. Please refer to real-time procedur al findings for details.
[2021-09-19 11:30] VITALS: BP 146/70; PULSE 58; RESP 16; TEMP 36.6; O2SAT 98
[2021-09-19] MEDS: LACTATED RINGERS 1,000 ML 30 ML IV CONT ×2 (11:35→12:34)
[2021-09-19] MEDS: ONDANSETRON INJ 4 MG/2 ML VIAL IV PUSH (11:40)
[2021-09-19] MEDS: fentaNYL CITRATE INJ (*CRX) 100 MCG/2 ML VIAL 50 MCG IV PUSH (11:40)
--- NOTE | 2021-09-19 11:44 | WPDANESEPPF ---
Anes - Initial Pre Proc Eval Procedure: Operation Date: 09/19/21 12:00 Proposed Procedures p Cystoscopy, Left Stent Placement - Miguel Robertson MD Date/Time: 09/19/21 11:44 Surgeon: Miguel Robertson MD Pre Op Diagnosis: left kidney stones Patient Data Age: 70 Gender: M Height: Weight: Allergies Allergy/AdvReac Type Severity Reaction Status Date / Time CIELO Inhibitors Allergy Mild Cough Verified 05/24/21 06:57 Home Medications Medication Instructions Recorded Confirmed Type atorvastatin 20 mg PO DAILY 05/10/21 05/24/21 History indomethacin 50 mg capsule 50 mg PO TID PRN #60 cap 06/25/21 Rx allopurinol 300 mg tablet 300 mg PO DAILY #90 tablet 09/18/21 Rx apixaban 5 mg tablet 5 mg PO BID #180 tablet 09/18/21 Rx diltiazem HCl 240 mg 240 mg PO DAILY #90 cap 09/18/21 Rx capsule,extended release 24 hr losartan 50 mg tablet 50 mg PO BID #180 tablet 09/18/21 Rx Patient hx anesthesia problems: none Family hx anesthesia problems: none Results Review: All pre-operative results and documents have been reviewed as part of the pre-operative evaluation. [facility] Past Medical History Medical History (Updated 09/18/21 @ 17:03 by Brionna Crenshaw MD) DVT (deep venous thrombosis) Left lower extremity after road trip to [place] 09/14/2020 Gout Hyperlipidemia Hypertension Obesity, morbid, BMI 40.0-49.9 Obstructive sleep apnea on CPAP Pre-diabetes No longer on medications with hemoglobin A1c of 5.04 September 2020 Skin lesion Excised from forearm Surgical History Surgical History S/P ureteral stent placement (09/20/20) Right ureteral stent placed by Dr. Roy Family History Family History Father Acute myocardial infarction Heart disease Social History Social History Social History: He lives in [place] with his . 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 He has 4 daughters who are healthy. He drinks 2 alcoholic beverages a day. Primary care provider: Balta Pickens Code status: Full code Surrogate decision maker: Smoking status: Never smoker Second hand tobacco smoke exposure: No Alcohol intake: current Drinks per week: 10 Alcohol use details: On occasion. Substance use: never Substance use type: does not use Gender identity (if verbalized by the patient): Male Spiritual care concerns: No Anes - Eval Final PreProcedure Day of Procedure 09/19/21 11:44 Patient weight: obese Heart: regular rate and rhythm Lungs: clear to auscultation and normal air movement Airway: Mallampati scale class II Neurological: alert and oriented Last oral intake: >/= 8 hours ASA classification: III Emergent: yes Anesthetic plan: proceed Anesthesia type and monitoring: general ETT and standard monitoring Results Review: All pre-operative results and documents have been reviewed as part of the pre-operative evaluation. Informed Consent: The patient's anesthetic plan and its attendant risks and benefits were discussed with the patient/family/POA. Questions were solicited and answers provided to the satisfaction of the patient/family/POA.
--- NOTE | 2021-09-19 12:01 | WPDHPUPDATE1 ---
History and Physical Update Update Date/Time: 09/19/21 12:01 History and Physical has been reviewed, including an updated exam of the patient. There are NO changes in the patient's condition. Risks, benefits, and alternatives have been discussed and questions answered. Patient agrees to proceed with procedure.
[2021-09-19] MEDS: ceFAZolin 2 GM/D5W 50 ML 2 GM/50 ML BAG IVPB (12:06)
--- NOTE | 2021-09-19 12:31 | P.OP_ITS ---
Procedure Note - Detailed Date of Procedure 09/19/21 Pre-op Diagnosis Left ureteral stone Bilateral ureteral stone Post-op Diagnosis Same Procedure Performed Cysto., left ureteroscopy, left stent placement Surgeon Miguel Robertson MD Anesthesia General Description of Procedure * The patient was brought to the operative suite where he was prepped and draped in a routine sterile fashion while in the dorsal lithotomy position. A 19 F rigid cystoscope was placed in her bladder and the bladder was circumferent ially inspected. There were no urethral strictures. The prostatic urethral estimated length was 2.0cm. There was mild obstruction of the prostatic urethra with no median lobe. The bladder mucosa was without hyperemia. There was no intravesical foreign body or neoplasm. There was a single orthotopic ureteral orifice bilaterally. Using a angiographic catheter I performed a left RPG to insure proper positioning of the ureteral stent. I advanced .035 glidewire into the [ renal pelvis under fluoroscopy. A 4.8F variable length ureteral stent was positioned with the proximal coil in the re nal pelvis and the distal coil in the bladder. Scopes and wires were removed after emptying the patient's bladder. Estimated Blood Loss 0 Drains No Packing No Pathology None sent Complications No immediate complications Condition Stable Disposition PACU
[2021-09-19 12:34] VITALS: BP 139/74; PULSE 58; RESP 16; TEMP 36; O2SAT 100
[2021-09-19 12:50] VITALS: BP 130/89; PULSE 54; RESP 16; O2SAT 100
[2021-09-19 13:05] VITALS: BP 145/73; PULSE 59; RESP 18; O2SAT 96
[2021-09-19 13:17] VITALS: BP 151/69; PULSE 57; RESP 18
[2021-09-19 13:45] VITALS: BP 169/75; PULSE 59; RESP 18
== END 2021-09-19 13:52 | disposition home or self-care (01) ==
PROVIDERS: PCP Family Medicine; Visit Provider Urology
PROC: (CPT 52352; principal; 2021-09-19 12:00)
DX: N20.2 Calculus of kidney with calculus of ureter (principal); I10 Essential (primary) hypertension; E78.5 Hyperlipidemia, unspecified; R73.03 Prediabetes; G47.33 Obstructive sleep apnea (adult) (pediatric); M10.9 Gout, unspecified; Z86.718 Personal history of other venous thrombosis and embolism; Z79.01 Long term (current) use of anticoagulants
CPT/HCPCS: 52332; 74176; 74420; A9270; C1758; C1769; C2617; J0330; J0690; J1100; J2250; J2405; J2704; J3010; J7120; Q9966

== ENCOUNTER 2021-09-27 12:14 | Outpatient (CLI) | payer MEDICARE, SELFPAY ==
[2021-09-27 12:52] LABS: Partial Thromboplastin Time 26.9 SECONDS (22.3-36.8)
[2021-09-27 13:02] LABS: Prothrombin Time 12.7 Seconds (11.1-14.7)
== END 2021-09-27 12:15 | disposition home or self-care (01) ==
PROVIDERS: PCP Family Medicine; Visit Provider Urology
DX: N20.1 Calculus of ureter (principal); Z01.818 Encounter for other preprocedural examination
CPT/HCPCS: 36415; 85610; 85730; 87086

== ENCOUNTER 2021-09-28 02:16 | Day surgery (SDC) | payer MEDICARE, SELFPAY ==
[2021-09-24 10:01] VITALS: BMI 42.1
--- NOTE | 2021-09-24 10:33 | PC.NURSE ---
Addendum entered by Analia Morris RN 09/24/21 10:52: ADD TO HOLD MEDICATION- HOLD INDOMETHACIN 7 DAYS PRE-OP. LAST DOSE 09/21/21. PT STATES HE HASN'T TAKEN ANY SINCE 09/19/21. Original Note: Report to the Outpatient Waiting Room, entrance under the green pavilion located off [facility], at time __9:30AM on date __09/28/21 . OR Time: __11:30AM . - You and your visitor will be asked a series of questions to screen for COVID 19 for your protection. - A mask is required within the hospital. Preoperative COVID Testing Requirements: No COVID Test needed if: (proof is required; if not received patient will have Rapid Test prior to entry) - Patient has received COVID Vaccine at least 14 days prior to procedure date or - Patient has positive COVID test result within last 90 days of surgery date. COVID Test needed if above criteria is not met If not COVID vaccinated a COVID test must be conducted within 72 hours of surgery and patient is asked to isolate self from time of testing until procedure. You will go to the [facility] for your COVID testing. The [facility] site is located at the corner of [address] [facility]. You will only be called if COVID results are positive and your surgeon may reschedule your elective surgery date. Patients may have clear liquids (water, carbonated beverages, clear teas, apple juice) until 3 hours prior to surgery with a maximum of 20 ounces. - No food from midnight until time of surgery - Infants may have breast milk until 4 hours before surgery, infant formula 6 hours prior to surgery. - Children will be allowed to drink immediately following surgery. If applicable, please bring a bottle or sippy cup to assist with drinking. Juice, water, soda, and popsicles are readily available. For infants on formula, please bring formula the day of surgery. Pacifiers are allowed. Take the following medications with a SIP of water the morning of surgery: _DILTIAZEM Medications to discontinue per physician HOLD ELIQUIS 2 DAYS PRE-OP, LAST DOSE 09/25/21. WILL BRIDGE WITH LOVENOX PER DR RUIZ'S ORDER. Date to take last dose Please no make-up, nail chinese, hairspray, perfume, deodorant, or body powder the day of surgery. No jewelry (including any body piercings) or valuables the day of surgery, leave them at home. Please take a shower or bath the night before, or the morning of, surgery with an antibacterial soap. Wear comfortable, loose fitting clothing. Children are encouraged to wear pajamas. - Jewelry must be removed prior to entering the operating room. Rings and piercings that are not removed may be cut off. - The hospital will not accept responsibility for valuables. - Please leave all valuables, including medications, at home the day of surgery. If you are going home after surgery, a licensed fire truck driver must drive you home. - NO public transportation without another adult. - We recommend that an adult stay with you for 24 hours following discharge. - We also recommend that you do not drive, make important decision, drink alcoholic beverages, or take any drugs that were not prescribed by your health care provider for at least 24 hours after your discharge time. For Pediatric surgeries, we recommend two adults accompany the child home (only one inside the building at this time). One visitor will be allowed to accompany the patient into the hospital. Patients visitor will be instructed to remain with patient at all times or leave the building. We will allow the visitor to come back to the postoperative area when patient is ready. Follow any additional instructions given to you from your surgeon. Telephone instructions given to _PATIENT and asked if any additional questions and then verbalized understanding. Patient advised to call surgeon office or pre surgery n
[2021-09-28] VITALS (7 sets, daily range): BP systolic 113–157; BP diastolic 52–85; PULSE 48–63; RESP 12–16; TEMP 36.2–36.4; O2SAT 96–98
--- NOTE | ~2021-09-28 | XR_ITS ---
EXAMINATION: XR abdomen/kub 1V INDICATION: Urolithiasis TECHNIQUE: Supine views of the abdomen were obtained on 2 radiographs. COMPARISON: 09/19/2021 FINDINGS: A left internal ureteral stent is in expected position. At least three stones are identifie d in the lower pole of the left kidney which measure 5 mm, 4 mm, and 4 mm. There is a 6 mm stone kari cent to the proximal aspect of the internal ureteral stent at the level of the left L4 transverse pro cess. There are multiple phleboliths of the pelvis. Known right nephrolithiasis is not well demonstra nataliia. The visualized lung bases are clear. The bowel gas pattern is normal. There is moderate osteoart hritis of the hips. IMPRESSION: 1. 6 mm stone adjacent to the proximal aspect of the left internal ureteral stent. 2. Left nephrolithiasis. Reviewed, dictated and finalized at location B. IMPRESSION: 1. 6 mm stone adjacent to the proximal aspect of the left internal ureteral steph nt. 2. Left nephrolithiasis.
--- NOTE | 2021-09-28 10:08 | WPDHPUPDATE1 ---
History and Physical Update Update Date/Time: 09/28/21 10:08 History and Physical has been reviewed, including an updated exam of the patient. There are NO changes in the patient's condition. Risks, benefits, and alternatives have been discussed and questions answered. Patient agrees to proceed with procedure. Proceed with eswl of left ureteral calculus
[2021-09-28] MEDS: LACTATED RINGERS 1,000 ML 30 ML IV CONT (10:15)
--- NOTE | 2021-09-28 10:52 | WPDANESEPPF ---
Anes - Initial Pre Proc Eval Procedure: Operation Date: 09/28/21 11:30 Proposed Procedures p Left Ureteral Extracorporeal Shock Wave Lithotripsy - Thiago Finn MD Date/Time: 09/28/21 10:52 Surgeon: Thiago Finn MD Pre Op Diagnosis: Left Ureteral Stone Patient Data Age: 70 Gender: M Height: 1.7 m Weight: 124.3 kg Last Vital Signs Temp 36.4 C 09/28/21 10:15 Pulse 61 09/28/21 10:15 Resp 16 09/28/21 10:15 BP 157/66 H 09/28/21 10:15 Pulse Ox 98 09/28/21 10:15 Allergies Allergy/AdvReac Type Severity Reaction Status Date / Time CIELO Inhibitors AdvReac Mild Cough Verified 09/28/21 10:32 Home Medications Medication Instructions Recorded Confirmed Type atorvastatin 20 mg PO DAILY 05/10/21 09/28/21 History indomethacin 50 mg capsule 50 mg PO TID PRN #60 cap 06/25/21 09/28/21 Rx allopurinol 300 mg tablet 300 mg PO DAILY #90 tablet 09/18/21 09/28/21 Rx apixaban 5 mg tablet 5 mg PO BID #180 tablet 09/18/21 09/28/21 Rx losartan 50 mg tablet 50 mg PO BID #180 tablet 09/18/21 09/28/21 Rx cephalexin 500 mg PO Q8H #21 cap 09/19/21 09/28/21 Rx hydrocodone-acetaminophen 1 - 2 tablet PO Q6H PRN #20 tablet 09/19/21 09/28/21 Rx diltiazem HCl 240 mg PO QAM 09/24/21 09/28/21 History enoxaparin 100 mg/mL subcutaneous 100 mg SUBCUT Q12H #20 ml 09/25/21 09/28/21 Rx syringe Patient hx anesthesia problems: none Family hx anesthesia problems: none Results Review: All pre-operative results and documents have been reviewed as part of the pre-operative evaluation. [facility] Past Medical History Medical History DVT (deep venous thrombosis) Left lower extremity after road trip to [place] 09/14/2020 Gout Hyperlipidemia Hypertension Obesity, morbid, BMI 40.0-49.9 Obstructive sleep apnea on CPAP Pre-diabetes No longer on medications with hemoglobin A1c of 5.04 September 2020 Skin lesion Excised from forearm Surgical History Surgical History S/P ureteral stent placement (09/20/20) Right ureteral stent placed by Dr. Roy Family History Family History Father Acute myocardial infarction Heart disease Social History Social History Social History: He lives in [place] with his . 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 He has 4 daughters who are healthy. He drinks 2 alcoholic beverages a day. Primary care provider: Balta Pickens Code status: Full code Surrogate decision maker: Smoking status: Never smoker Second hand tobacco smoke exposure: No Alcohol intake: current Drinks per week: 7 Alcohol use details: On occasion. Substance use: never Substance use type: does not use Living arrangements: with family Additional living arrangements comments: [facility] Gender identity (if verbalized by the patient): Male Spiritual care concerns: No Anes - Eval Final PreProcedure Day of Procedure 09/28/21 10:52 Patient weight: morbidly obese Heart: regular rate and rhythm Lungs: decreased breath sounds Airway: Mallampati scale class II Neurological: alert and oriented Last oral intake: >/= 8 hours ASA classification: III Emergent: no Anesthetic plan: proceed Anesthesia type and monitoring: general LMA and standard monitoring Results Review: All pre-operative results and documents have been reviewed as part of the pre-operative evaluation. Informed Consent: The patient's anesthetic plan and its attendant risks and benefits were discussed with the patient/family/POA. Questions were solicited and answers provided to the satisfaction of the patient/family/POA.
[2021-09-28] MEDS: ceFAZolin 3 GM/D5W 100 ML 100 ML IVPB (11:10)
--- NOTE | 2021-09-28 11:43 | W.PM.PROC2 ---
Procedure Note - Detailed Date of Procedure 09/28/21 Pre-op Diagnosis Left Ureteral Stone Post-op Diagnosis Same Procedure Performed Lithotripsy of left proximal ureteral calculus Surgeon Thiago Finn MD Anesthesia General Description of Procedure Patient is taken to the operative suite and correctly identified. Once anesthesia was obtained the stone was localized in both planes. Three thousand shocks were given. We used a low power setting. Patient tolerated procedure well without any complications and was taken recovery stable condition. He will follow up 7-10 days with KUB. Drains Yes (Has left ureteral stent) Packing No Pathology None sent Complications No immediate complications Condition Stable Disposition PACU
== END 2021-09-28 13:25 | disposition home or self-care (01) ==
PROVIDERS: PCP Family Medicine; Visit Provider Urology
PROC: (CPT 50590; principal; 2021-09-28 11:30)
DX: N20.1 Calculus of ureter (principal); I10 Essential (primary) hypertension; E78.5 Hyperlipidemia, unspecified; G47.33 Obstructive sleep apnea (adult) (pediatric); R73.03 Prediabetes; Z86.718 Personal history of other venous thrombosis and embolism; E66.01 Morbid (severe) obesity due to excess calories; Z68.41 Body mass index [BMI] 40.0-44.9, adult; Z79.01 Long term (current) use of anticoagulants
CPT/HCPCS: 50590; 36415; 74018; 85610; 85730; 87086; J0690; J1100; J2405; J2704; J7120

== ENCOUNTER 2021-10-13 07:36 | Outpatient (CLI) | payer MEDICARE, SELFPAY ==
--- NOTE | ~2021-10-13 | XR_ITS ---
EXAMINATION: XR abdomen/kub 1V EXAM DATE: 10/13/2021 07:58 INDICATION: Lt ureteral Kidney Stone, Follow-Up . TECHNIQUE: Frontal projection of the upper abdomen, frontal projection lower abdomen/pelvis for inter pretation. Comparison is made to prior examination from 09/28/2021. FINDINGS: Left-sided double-J ureteral stent in position. There are multiple left calyceal stones. T here is approximately 6 mm stone along the proximal aspect of the stent, indicated. Calcifications in the pelvis are believed to be phleboliths. Moderate to severe lower lumbar disc disease. Nonobstruct valencia bowel gas pattern. IMPRESSION: 1. Persistent left nephrolithiasis, ureteral stone. 2. Stent in position. Reviewed, dictated and finalized at location A.
== END 2021-10-13 07:37 | disposition home or self-care (01) ==
PROVIDERS: PCP Family Medicine; Visit Provider Urology
DX: N20.1 Calculus of ureter (principal); N20.0 Calculus of kidney; Z96.0 Presence of urogenital implants
CPT/HCPCS: 74018

== ENCOUNTER 2021-10-17 12:14 | Outpatient (CLI) | payer MEDICARE, SELFPAY | END 2021-10-17 12:15 | disposition home or self-care (01) | LOC: ANHSURGERY 12:16 | PROVIDERS: PCP Family Medicine; Visit Provider Urology | DX: N20.1 Calculus of ureter (principal) | CPT/HCPCS: 87086 ==

== ENCOUNTER 2021-10-23 00:18 | Day surgery (SDC) | payer MEDICARE, SELFPAY ==
[2021-10-17 10:18] VITALS: BMI 43.7
--- NOTE | 2021-10-17 10:49 | PC.NURSE ---
Report to the Outpatient Waiting Room, entrance under the green pavilion located off [facility], at time _12:00PM on date _10/23/21 . OR Time: ___2:00PM . - You and your visitor will be asked a series of questions to screen for COVID 19 for your protection. - A mask is required within the hospital. Preoperative COVID Testing Requirements: No COVID Test needed if: (proof is required; if not received patient will have Rapid Test prior to entry) - Patient has received COVID Vaccine at least 14 days prior to procedure date or - Patient has positive COVID test result within last 90 days of surgery date. COVID Test needed if above criteria is not met If not COVID vaccinated a COVID test must be conducted within 72 hours of surgery and patient is asked to isolate self from time of testing until procedure. You will go to the [facility] for your COVID testing. The [employer] [facility] is located at the corner of [address] [facility]. You will only be called if COVID results are positive and your surgeon may reschedule your elective surgery date. Patients may have clear liquids (water, carbonated beverages, clear teas, apple juice) until 3 hours prior to surgery with a maximum of 20 ounces. - No food from midnight until time of surgery - Infants may have breast milk until 4 hours before surgery, formula 6 hours prior to surgery. - Children will be allowed to drink immediately following surgery. If applicable, please bring a bottle or sippy cup to assist with drinking. Juice, water, soda, and popsicles are readily available. For infants on formula, please bring formula the day of surgery. Pacifiers are allowed. Take the following medications with a SIP of water the morning of surgery: ___DILTIAZEM Medications to discontinue per physician HOLD ELIQUIS 2 DAYS PRE-OP PER PATIENT(PER DR NG) Date to take last dose__10/20/21 Please no make-up, nail faroese, hairspray, perfume, deodorant, or body powder the day of surgery. No jewelry (including any body piercings) or valuables the day of surgery, leave them at home. Please take a shower or bath the night before, or the morning of, surgery with an antibacterial soap. Wear comfortable, loose fitting clothing. Children are encouraged to wear pajamas. - Jewelry must be removed prior to entering the operating room. Rings and piercings that are not removed may be cut off. - The hospital will not accept responsibility for valuables. - Please leave all valuables, including medications, at home the day of surgery. If you are going home after surgery, a licensed stock car driver must drive you home. - NO public transportation without another adult. - We recommend that an adult stay with you for 24 hours following discharge. - We also recommend that you do not drive, make important decision, drink alcoholic beverages, or take any drugs that were not prescribed by your health care provider for at least 24 hours after your discharge time. For Pediatric surgeries, we recommend two adults accompany the child home (only one inside the building at this time). One visitor will be allowed to accompany the patient into the hospital. Patients visitor will be instructed to remain with patient at all times or leave the building. We will allow the visitor to come back to the postoperative area when patient is ready. Follow any additional instructions given to you from your surgeon. Telephone instructions given to __PATIENT and asked if any additional questions and then verbalized understanding. Patient advised to call surgeon office or pre surgery nurse liaison [phone] if any additional questions.
[2021-10-23] VITALS (7 sets, daily range): BP systolic 119–151; BP diastolic 66–99; PULSE 49–108; RESP 12–18; TEMP 36.2–36.3; O2SAT 95–99
--- NOTE | ~2021-10-23 | XR_ITS ---
EXAMINATION: XR stent kub - surgery DATE: 10/23/2021 14:38 INDICATION: Left ureteral stone. TECHNIQUE: 4 intraoperative fluoroscopic views of the abdomen and pelvis were obtained. I was not pre sent. Fluoroscopy exposure time was 36 seconds. COMPARISON: CT abdomen and pelvis 09/19/2021 FINDINGS: Images demonstrate a wire in the left ureter and placement of a new internal ureteral stent . IMPRESSION: 1. New left internal ureteral stent in expected position. Reviewed, dictated and finalized at location B.
--- NOTE | 2021-10-23 12:05 | WPDHPUPDATE1 ---
History and Physical Update Update Date/Time: 10/23/21 12:05 History and Physical has been reviewed, including an updated exam of the patient. There are NO changes in the patient's condition. Risks, benefits, and alternatives have been discussed and questions answered. Patient agrees to proceed with procedure. Proceed with cystoscopy, left retrograde, left ureteroscopy with stone extraction, possible holmium laser, stent exchange
[2021-10-23] MEDS: LACTATED RINGERS 1,000 ML 30 ML IV CONT (12:33)
--- NOTE | 2021-10-23 12:35 | WPDANESEPPF ---
Anes - Initial Pre Proc Eval Procedure: Operation Date: 10/23/21 14:00 Proposed Procedures p Cystoscopy, Left Retrograde Pyelogram, Left Ureteroscopy, Left Ureteral Stent Exchange - Thiago Finn MD s Possible Holmium Laser Procedure - Thiago Finn MD Date/Time: 10/23/21 12:35 Surgeon: Thiago Finn MD Pre Op Diagnosis: left ureteral stone Patient Data Age: 70 Gender: M Height: 1.68 m Weight: 126.3 kg Last Vital Signs Temp 36.3 C L 10/23/21 12:11 Pulse 52 L 10/23/21 12:11 Resp 16 10/23/21 12:11 BP 135/66 10/23/21 12:11 Pulse Ox 99 10/23/21 12:11 Allergies Allergy/AdvReac Type Severity Reaction Status Date / Time CIELO Inhibitors AdvReac Mild Cough Verified 10/23/21 12:19 Home Medications Medication Instructions Recorded Confirmed Type atorvastatin 20 mg PO DAILY 05/10/21 10/23/21 History allopurinol 300 mg tablet 300 mg PO DAILY #90 tablet 09/18/21 10/23/21 Rx apixaban 5 mg tablet 5 mg PO BID #180 tablet 09/18/21 10/23/21 Rx losartan 50 mg tablet 50 mg PO BID #180 tablet 09/18/21 10/23/21 Rx diltiazem HCl 240 mg PO QAM 09/24/21 10/23/21 History Patient hx anesthesia problems: none Family hx anesthesia problems: none Results Review: All pre-operative results and documents have been reviewed as part of the pre-operative evaluation. [facility] Past Medical History Medical History DVT (deep venous thrombosis) Left lower extremity after road trip to [place] 09/14/2020 Gout Hyperlipidemia Hypertension Obesity, morbid, BMI 40.0-49.9 Obstructive sleep apnea on CPAP Pre-diabetes No longer on medications with hemoglobin A1c of 5.04 September 2020 Skin lesion Excised from forearm Surgical History Surgical History (Updated 10/03/21 @ 15:43 by Natasha Phipps CMA) Hx of lithotripsy S/P ureteral stent placement (09/20/20) Right ureteral stent placed by Dr. Roy Family History Family History (Reviewed 10/03/21 @ 15:42 by Natasha Phipps [facility]) Father Acute myocardial infarction Heart disease Social History Social History (Reviewed 10/03/21 @ 15:42 by Natasha Phipps [facility]) Social History: He lives in [place] with his . 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 He has 4 daughters who are healthy. He drinks 2 alcoholic beverages a day. Primary care provider: Balta Pickens Code status: Full code Surrogate decision maker: Smoking status: Never smoker Second hand tobacco smoke exposure: No Alcohol intake: current Drinks per week: 12 Alcohol use details: On occasion. Substance use: never Substance use type: does not use Living arrangements: with family Additional living arrangements comments: Gender identity (if verbalized by the patient): Male Spiritual care concerns: No Anes - Eval Final PreProcedure Day of Procedure 10/23/21 12:35 Patient weight: morbidly obese Heart: regular rate and rhythm Lungs: clear to auscultation and normal air movement Airway: Mallampati scale class II Neurological: alert and oriented Last oral intake: >/= 8 hours ASA classification: III Anesthetic plan: proceed Anesthesia type and monitoring: general LMA and standard monitoring Results Review: All pre-operative results and documents have been reviewed as part of the pre-operative evaluation. Informed Consent: The patient's anesthetic plan and its attendant risks and benefits were discussed with the patient/family/POA. Questions were solicited and answers provided to the satisfaction of the patient/family/POA.
[2021-10-23] MEDS: ceFAZolin 3 GM/D5W 100 ML 100 ML IVPB (13:38)
[2021-10-23] MEDS: LIDOCAINE HCL 2% GEL UROJET 10 ML PKG MUCOUS MEM (13:42)
--- NOTE | 2021-10-23 14:39 | P.OP_ITS ---
Procedure Note - Detailed Date of Procedure 10/23/21 Pre-op Diagnosis left ureteral stone Post-op Diagnosis Same Procedure Performed Cystoscopy, left ureteroscopy with stone extraction, left ureteral stent exchange Surgeon Thiago Finn MD Anesthesia General Description of Procedure Patient is taken to the operative suite correctly identified. Once anesthesia was obtained was placed in dorsal lithotomy position and prepped and draped usual sterile fashion. Twenty-two Belarusian scope was inserted into the urethra. The stent was grasped brought out the meatus. I could not pass a wire past it and thus we removed in its entirety. We then placed a rigid ureteral scope and advanced a wire up to the kidney. A ureteral access sheath was then placed in a mini flexible scope was inserted. The stone was visualized and grasped and sent for analysis. Reinspection of the ureter revealed no residual ureteral stones. We passed the scope up into the kidney but visibility was poor due to some blood colored fluid. At this point we decided to terminate the procedure. 4.8 Belarusian contour stent was placed with proximal end coiled in the renal pelvis and the distal in the bladder. Patient is taken recovery stable condition. 2% viscous lidocaine was inserted urethra. Patient will follow-up in approximately 2 weeks time for stent removal. Will simply need to address the renal stones as they become symptomatic. Drains Yes Packing No Pathology Yes Complications No immediate complications Condition Stable Disposition PACU
--- NOTE | 2021-10-23 15:13 | SUR.PHASEI ---
1510-PT REQUESTING TO USE BATHROOM FOR BM-DOES NOT WANT TO USE BEDPAN. AWAKE/VSS/WILL DISCHARGE TO OP FOR BR USAGE.
== END 2021-10-23 15:57 | disposition home or self-care (01) ==
PROVIDERS: PCP Family Medicine; Visit Provider Urology
PROC: (CPT 52352; principal; 2021-10-23 14:00)
DX: N20.1 Calculus of ureter (principal); I10 Essential (primary) hypertension; E78.5 Hyperlipidemia, unspecified; G47.33 Obstructive sleep apnea (adult) (pediatric); R73.03 Prediabetes; M10.9 Gout, unspecified; Z86.718 Personal history of other venous thrombosis and embolism; Z79.01 Long term (current) use of anticoagulants; E66.01 Morbid (severe) obesity due to excess calories; Z68.41 Body mass index [BMI] 40.0-44.9, adult
CPT/HCPCS: 52332; 52352; 82365; 88300; A9270; C1769; C1894; C2617; J0690; J2250; J2704; J3010; J7120; Q9966

== ENCOUNTER 2021-12-15 07:59 | Outpatient (CLI) | payer MEDICARE, SELFPAY ==
--- NOTE | ~2021-12-15 | XR_ITS ---
XR abdomen/kub 1V 12/15/2021 08:18 Indication: Bilateral renal stones Procedure: KUB Comparison: Comparison to multiple prior studies sequentially, with oldest reviewed study dated 10/02. Findings: Bowel gas pattern is nonobstructive. There are bilateral renal stones which are partially o bscured by bowel content. Interval removal of left internal ureteral stent. There multiple pelvic phl eboliths. Severe lumbar spondylosis. No acute osseous abnormality. Impression: 1: Bilateral nephrolithiasis. Reviewed, dictated and finalized at location A. Impression: 1: Bilateral nephrolithiasis.
== END 2021-12-15 08:00 | disposition home or self-care (01) ==
PROVIDERS: PCP Family Medicine; Visit Provider Urology
DX: N20.0 Calculus of kidney (principal)
CPT/HCPCS: 74018

== ENCOUNTER 2022-10-02 11:00 | Outpatient (CLI) | payer MEDICARE, SELFPAY ==
--- NOTE | ~2022-10-02 | XR_ITS ---
XR elbow RT min 3V DATE: 10/02/2022 11:15 INDICATION: Confusion for one month. Posterior soft tissue swelling. TECHNIQUE: 4 views COMPARISON: None FINDINGS: There is prominent posterior soft tissue swelling, likely due to olecranon bursitis. Minima l dorsal olecranon process spurring. Slight spurring of the coronoid process. No fracture or dislocat ion, periosteal reaction or bone destruction. IMPRESSION: Olecranon bursitis Mild degenerative change Reviewed, dictated and finalized at location B.
== END 2022-10-02 11:01 | disposition home or self-care (01) ==
LOC: ANHIMG 11:03
PROVIDERS: PCP Family Medicine; Visit Provider Physician Assistant Medical
DX: M19.021 Primary osteoarthritis, right elbow (principal); M70.21 Olecranon bursitis, right elbow
CPT/HCPCS: 73080

== ENCOUNTER 2022-12-27 08:21 | Outpatient (CLI) | payer MEDICARE, SELFPAY ==
--- NOTE | ~2022-12-27 | XR_ITS ---
Supine and upright views of the abdomen Clinical history: Kidney stones COMPARISON: 12/15/2021 Findings: Bowel gas pattern is nonspecific. No evidence for obstruction or free air. Multiple bilater al renal stones are present. Largest stone is at the left kidney measuring 8 mm in diameter.. Osseous structures are intact. Impression: Bilateral nephrolithiasis, as detailed above. Reviewed, dictated and finalized at location . Impression: Bilateral nephrolithiasis, as detailed above.
== END 2022-12-27 08:22 | disposition home or self-care (01) ==
PROVIDERS: PCP Physician Assistant; Visit Provider Urology
DX: N20.0 Calculus of kidney (principal)
CPT/HCPCS: 74018

== ENCOUNTER 2023-02-06 11:25 | Outpatient (CLI) | payer MEDICARE, SELFPAY ==
[2023-02-06 12:06] LABS: Anion Gap 6 mmol/L (8-16); Blood Urea Nitrogen 20 mg/dL (9-20); Calcium 8.9 mg/dL (8.4-10.2); Carbon Dioxide 27 mmol/L (22-30); Chloride 105 mmol/L (98-107); Estimated Glomerular Filt Rate 54; Glucose 129 mg/dL (65-110); Potassium 4.2 mmol/L (3.4-5.0); Sodium 138 mmol/L (137-145)
[2023-02-06 12:10] LABS: INR 1.2; Prothrombin Time 15.3 Seconds (11.1-14.7)
== END 2023-02-06 11:26 | disposition home or self-care (01) ==
LOC: ANHSURGERY 11:29
PROVIDERS: Anesthesiology; PCP Physician Assistant; Visit Provider Orthopaedic Surgery
DX: Z01.812 Encounter for preprocedural laboratory examination (principal); N18.31 Chronic kidney disease, stage 3a
CPT/HCPCS: 36415; 80048; 85610; 85730

== ENCOUNTER 2023-02-11 00:29 | Day surgery (SDC) | payer MEDICARE, SELFPAY ==
[2022-12-09 15:07] VITALS: BMI 44.4
--- NOTE | 2022-12-09 15:20 | PC.NURSE ---
PRE-OP INSTRUCTIONS, PLEASE READ CAREFULLY Report to the Outpatient Waiting Room, entrance under the green pavilion located off [facility], at time _1 PM_ on date _12/23/22_. Planned Procedure Time: _3 PM_. Time changes happen often and if your time is changed the preop area will call you the afternoon before. - You and your visitor will be asked to self-screen and do not enter if you have any COVID symptoms. - A mask is optional within the hospital at this time. Patients may have clear liquids (water, carbonated beverages, clear teas, apple juice) until 3 hours prior to surgery with a maximum of 20 ounces. - No food from midnight until time of surgery Take the following medications with a SIP of water the morning of surgery: _DILTIAZEM_ DO NOT STOP ANY OF YOUR OTHER PRESCRIPTION MEDICATIONS PRIOR TO SURGERY ?EXCEPT THE FOLLOWING Medications to discontinue _ELIQUIS PER DR. TELLO'S INSTRUCTIONS, Date to take last dose_CALL DR. TELLO'S OFFICE__ Please no make-up, nail hung[place], hairspray, perfume, deodorant, or body powder the day of surgery. No jewelry (including any body piercings) or valuables the day of surgery, leave them at home. Please take a shower or bath the night before, or the morning of, surgery with an antibacterial soap. Wear comfortable, loose fitting clothing. Children are encouraged to wear pajamas. - Jewelry must be removed prior to entering the operating room. Rings and piercings that are not removed may be cut off. - The hospital will not accept responsibility for valuables. - Please leave all valuables, including medications, at home the day of surgery. If you are going home after surgery, a licensed regional company hazmat tanker driver must drive you home. - NO public transportation without another adult if you receive anesthesia. - We recommend that an adult stay with you for 24 hours following discharge. - We also recommend that you do not drive, make important decision, drink alcoholic beverages, or take any drugs that were not prescribed by your health care provider for at least 24 hours after your discharge time. Follow any additional instructions given to you from your surgeon. If you or anyone in your household have experienced Covid symptoms in the past week, please notify your surgeon or the nurse liaison at the phone number below for possible testing. Telephone instructions given to _PATIENT_and asked if any additional questions and then verbalized understanding. Patient advised to call surgeon office or pre surgery nurse liaison [phone] if any additional questions.
--- NOTE | 2023-02-04 08:44 | PC.NURSE ---
PRE-OP INSTRUCTIONS, PLEASE READ CAREFULLY Report to the Outpatient Waiting Room, entrance under the green pavilion located off [facility], at time _1130_ on date _02/11/23_. Planned Procedure Time: _1:30 PM_. Time changes happen often and if your time is changed the preop area will call you the afternoon before. - You and your visitor will be asked to self-screen and do not enter if you have any COVID symptoms. - A mask is optional within the hospital at this time. Patients may have clear liquids (water, carbonated beverages, clear teas, apple juice) until 3 hours prior to surgery (1030 AM) with a maximum of 20 ounces. - No food from midnight until time of surgery Take the following medications with a SIP of water the morning of surgery: _DILTIAZEM__ DO NOT STOP ANY OF YOUR OTHER PRESCRIPTION MEDICATIONS PRIOR TO SURGERY ?EXCEPT THE FOLLOWING Medications to discontinue per DR. TELLO - _ELIQUIS 2 DAYS PRIOR TO SURGERY 2 DAYS PRIOR TO SURGERY, Date to take last dose 02/08/23_ Please no make-up, nail citizen of [place], hairspray, perfume, deodorant, or body powder the day of surgery. No jewelry (including any body piercings) or valuables the day of surgery, leave them at home. Please take a shower or bath the night before, or the morning of, surgery with an antibacterial soap. Wear comfortable, loose fitting clothing. - Jewelry must be removed prior to entering the operating room. Rings and piercings that are not removed may be cut off. - The hospital will not accept responsibility for valuables. - Please leave all valuables, including medications, at home the day of surgery. If you are going home after surgery, a licensed petroleum transport driver must drive you home. - NO public transportation without another adult if you receive anesthesia. - We recommend that an adult stay with you for 24 hours following discharge. - We also recommend that you do not drive, make important decision, drink alcoholic beverages, or take any drugs that were not prescribed by your health care provider for at least 24 hours after your discharge time. Follow any additional instructions given to you from your surgeon. If you or anyone in your household have experienced Covid symptoms in the past week, please notify your surgeon or the nurse liaison at the phone number below for possible testing. Telephone instructions given to _PATIENT__and asked if any additional questions and then verbalized understanding. Patient advised to call surgeon office or pre surgery nurse liaison [phone] if any additional questions.
[2023-02-04 08:48] VITALS: BMI 44.4
[2023-02-11] MEDS: ACETAMINOPHEN 500 MG TABLET 1000 MG PO (12:15)
[2023-02-11] MEDS: KETOROLAC 15 MG/ML VIAL (*BKC) IV PUSH (12:15)
[2023-02-11 12:18] VITALS: BP 145/73; PULSE 61; RESP 14; TEMP 36.3; O2SAT 98
[2023-02-11 12:18] LABS: Glucose Point of Care 108 mg/dl (65-105)
[2023-02-11 12:18] LABS: Partial Thromboplastin Time 28.1 SECONDS (22.3-36.8)
--- NOTE | 2023-02-11 13:36 | WPDANESEPPF ---
Anes - Initial Pre Proc Eval Procedure: Operation Date: 02/11/23 13:30 Proposed Procedures p Right Elbow Olecranon Bursectomy - Kashif Cota MD Date/Time: 02/11/23 13:36 Surgeon: Kashif Cota MD Pre Op Diagnosis: olecranon bursitis right elbow Patient Data Age: 72 Gender: M Height: 1.68 m Weight: 127.8 kg Last Vital Signs Temp 97.4 F L 02/11/23 12:18 Pulse 61 02/11/23 12:18 Resp 14 02/11/23 12:18 BP 145/73 H 02/11/23 12:18 Pulse Ox 98 02/11/23 12:18 O2 Del Method Room Air 02/11/23 12:18 Allergies Allergy/AdvReac Type Severity Reaction Status Date / Time CIELO Inhibitors AdvReac Mild Cough Verified 02/11/23 12:24 Home Medications Medication Instructions Recorded Confirmed Type diltiazem HCl 240 mg 240 mg PO QAM #90 caps 06/04/22 02/11/23 Rx capsule,extended release 24 hr allopurinol 300 mg tablet 300 mg PO DAILY #90 tabs 06/18/22 02/04/23 Rx losartan 100 mg tablet 100 mg PO DAILY #90 tabs 09/09/22 02/04/23 Rx atorvastatin 20 mg tablet 20 mg PO DAILY #90 tabs 12/09/22 02/04/23 Rx indomethacin 1 cap TID PRN GOUT 12/09/22 02/04/23 History apixaban 5 mg tablet (Eliquis) 5 mg PO BID #180 tabs 01/09/23 02/11/23 Rx dapagliflozin propanediol 10 mg 10 mg QAM 02/04/23 02/04/23 History tablet (Farxiga) Laboratory Tests 02/11/23 02/11/23 02/11/23 11:55 11:55 12:10 PT 14.0 Seconds (11.1-14.7) INR 1.0 APTT Cancelled 28.1 SECONDS (22.3-36.8) POC Capillary Glucose 108 H mg/dl (65-105) Patient hx anesthesia problems: none Family hx anesthesia problems: none Results Review: All pre-operative results and documents have been reviewed as part of the pre-operative evaluation. [facility] Past Medical History Medical History Bursitis of right elbow DVT (deep venous thrombosis) Left lower extremity after road trip to [place] 09/14/2020 Gout History of sepsis Hyperlipidemia Hypertension Obesity, morbid, BMI 40.0-49.9 Obstructive sleep apnea on CPAP Poison toni dermatitis Pre-diabetes No longer on medications with hemoglobin A1c of 5.04 September 2020 Skin lesion Excised from forearm Surgical History Surgical History Hx of lithotripsy S/P ureteral stent placement (09/20/20) Right ureteral stent placed by Dr. Roy Family History Family History Father Acute myocardial infarction Heart disease Social History Social History Social History: He lives in [place] with his . 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 He has 4 daughters who are healthy. He drinks 2 alcoholic beverages a day. Code status: Full code Surrogate decision maker: Smoking status: Never smoker Second hand tobacco smoke exposure: No Alcohol intake: current Drinks per week: 14 Substance use: never Substance use type: does not use Lack of Transportation: No Lack of Food: Never True Current Housing: I Have Housing Concerned About Future Housing: No Difficulty Paying Gas/Electric Bills: No Difficulty Paying for Meds: No Currently Unemployed: No Education: High School Diploma/GED Difficulty w/ Childcare or Family Care: No Living arrangements: with family Occupation/Education: retired Gender identity (if verbalized by the patient): Male Sexual Orientation (if Verbalized by the Patient): Straight or Heterosexual Spiritual care concerns: No Agree to blood products: Yes Anes - Eval Final PreProcedure Day of Procedure 02/11/23 13:36 Patient weight: morbidly obese Heart: regular rate and rhythm Lungs: clear to auscultation Airway: Mallampati scale class II Neurological: alert and oriented Last oral intake: >/= 8 hours ASA classification: III Emergent: no Anesthe
--- NOTE | 2023-02-11 13:41 | WPDHPUPDATE1 ---
History and Physical Update Update Date/Time: 02/11/23 13:41 History and Physical has been reviewed, including an updated exam of the patient. There are NO changes in the patient's condition. Risks, benefits, and alternatives have been discussed and questions answered. Patient agrees to proceed with procedure.
[2023-02-11] MEDS: ceFAZolin 3 GM/D5W 100 ML 100 ML IVPB (13:51)
[2023-02-11] MEDS: LACTATED RINGERS 1,000 ML 30 ML IV CONT (13:54)
[2023-02-11] MEDS: BUPivacaine HCL 0.5% 10 ML AMP 20 ML INFILTRATE (14:21)
[2023-02-11 15:00] VITALS: BP 151/95; PULSE 59; RESP 14; TEMP 36.2; O2SAT 97
[2023-02-11 15:11] LABS: Glucose Point of Care 118 mg/dl (65-105)
--- NOTE | 2023-02-11 15:13 | W.PM.PROC2 ---
Procedure Note - Detailed Date of Procedure 02/11/23 Pre-op Diagnosis olecranon bursitis right elbow Post-op Diagnosis Same Procedure Performed Excision right elbow olecranon bursa. Surgeon Kashif Cota MD Anesthesia General Findings Large contained benign appearing bursal mass. Description of Procedure Preoperative antibiotics were given. General anesthetic was administered. The right arm was prepped and draped in usual sterile fashion with well-padded tourniquet high in the arm. Longitude incision was created posteriorly over the elbow slightly radial. Subcutaneous dissection was carried around the large bursal sac. Care was taken to keep the skin flap as thick as possible. Particular caution taken at the ulnar side of the lesion. Mass was sent to pathology. Tourniquet was released. The wound was irrigated. Meticulous hemostasis obtained. The wound was somewhat oozing. The proximal portion was left slightly loose upon closure to allow for some drainage. The wound was closed with 3-0 interrupted Monocryl suture followed by running 4-0 Monocryl suture. Sterile bulky dressing with posterior splint was applied. The patient was extubated and brought to the recovery room in stable condition with a sling. No complications. Estimated Blood Loss 20 Drains No Packing No Pathology Yes Complications No immediate complications Condition Stable Disposition PACU [facility] Billing Surgery - Charge Forward: Surgery Billing
[2023-02-11 15:15] VITALS: BP 141/80; PULSE 52; RESP 15; O2SAT 97
[2023-02-11 15:35] VITALS: BP 129/56; PULSE 53; RESP 16
[2023-02-11 15:55] VITALS: BP 110/95; PULSE 53; RESP 16
== END 2023-02-11 16:29 | disposition home or self-care (01) ==
PROVIDERS: Anesthesiology; PCP Physician Assistant; Visit Provider Orthopaedic Surgery
PROC: (CPT 24110; principal; 2023-02-11 13:30)
DX: M70.21 Olecranon bursitis, right elbow (principal); I10 Essential (primary) hypertension; E78.5 Hyperlipidemia, unspecified; G47.33 Obstructive sleep apnea (adult) (pediatric); M10.9 Gout, unspecified; Z86.718 Personal history of other venous thrombosis and embolism; Z79.01 Long term (current) use of anticoagulants; E66.01 Morbid (severe) obesity due to excess calories; Z68.42 Body mass index [BMI] 45.0-49.9, adult
CPT/HCPCS: 24105; 36415; 80048; 82948; 85610; 85730; 88304; A9270; J0330; J0690; J1885; J2405; J2704; J3010; J7120

== ENCOUNTER 2024-01-13 07:57 | Outpatient (CLI) | payer MEDICARE, SELFPAY ==
--- NOTE | ~2024-01-13 | XR_ITS ---
XR abdomen/kub 1V Ordering provider: Thiago Finn MD History: . RIGHT FLANK PAIN FOR 2 WEEKS/HX OF STONES . Comparison: December 27, 2022 FINDINGS: BOWEL: Nonobstructive bowel gas pattern. ORGANOMEGALY: None. SIGNIFICANT PATHOLOGIC CALCIFICATIONS: Bilateral kidney stones. OTHER: No free air is seen under the diaphragm. Degenerative changes of the spine. IMPRESSION: NO ACUTE ABDOMINAL FINDINGS. Bilateral kidney stones. Reviewed, dictated and finalized at location A.
== END 2024-01-13 07:58 | disposition home or self-care (01) ==
LOC: ANHIMG 07:59
PROVIDERS: PCP Family Medicine; Visit Provider Urology
DX: N20.0 Calculus of kidney (principal)
CPT/HCPCS: 74018

== ENCOUNTER 2024-03-10 14:34 | Outpatient (CLI) | payer MEDICARE, SELFPAY ==
--- NOTE | ~2024-03-10 | CT_ITS ---
EXAMINATION:CT diagnostic chest wo con DATE: 03/10/2024 15:08 INDICATION: Coronary disease involving [place] coronary arteries. TECHNIQUE: Computed tomography (CT) of the chest was performed without intravenous contrast. Automate d exposure control and iterative reconstruction technique were employed. The dose-length product (DLP ) was 926.51 mGy-cm. COMPARISON: CT abdomen and pelvis 09/19/2021 FINDINGS: There are 6 mm and 5 mm nodules in right upper lobe. There is a 6 mm nodule in left upper l obe. There is a stable 8 mm nodule in lingula, likely benign. No pleural effusion. Cardiomegaly is no nataliia. There are coronary artery calcifications. No pericardial effusion. Aortic atherosclerosis is not ed. There is a 2.7 cm cyst in left kidney. There are stones in the kidneys measuring up to 8 mm in th e left. There are bridging endplate osteophytes at multiple levels in the spine, consistent with diff use idiopathic skeletal hyperostosis (DISH). IMPRESSION: 1. Small pulmonary nodules, probably benign. Consider noncontrast low-dose chest CT in 6-12 months. Reviewed, dictated and finalized at location A. IMPRESSION: 1. Small pulmonary nodules, probably benign. Consider noncontrast low-dose ches t CT in 6-12 months.
== END 2024-03-10 14:35 | disposition home or self-care (01) ==
PROVIDERS: PCP Family Medicine; Visit Provider Thoracic Surgery (Cardiothoracic Vascular Surgery)
DX: I25.10 Atherosclerotic heart disease of native coronary artery without angina pectoris (principal); R91.8 Other nonspecific abnormal finding of lung field
CPT/HCPCS: 71250

== ENCOUNTER 2024-06-28 07:15 | Outpatient (RCR) | payer MEDICARE, SELFPAY | END 2024-07-01 08:58 | disposition home or self-care (01) | LOC: ANHCPREHAB 07:15 | PROVIDERS: PCP Family Medicine; Visit Provider Internal Medicine Cardiovascular Disease | DX: Z95.1 Presence of aortocoronary bypass graft (principal) | CPT/HCPCS: 93798 ==

== ENCOUNTER 2025-01-13 11:46 | Outpatient (CLI) | payer MEDICARE, SELFPAY ==
--- NOTE | ~2025-01-13 | XR_ITS ---
EXAM/PROCEDURE: XR abdomen/kub 1V - 01/13/2025 12:02 CDT HISTORY: 74 years old Male with calcium kidney stone, BILATERAL KIDNEY STONE FOLLOW-UP COMPARISON: 01/13/2024 TECHNIQUE: AP view(s) of the abdomen. FINDINGS: The bowel gas pattern is normal. There is no evidence for obstruction. Multiple radiopaque densities overlying the kidneys may represent nephrolithiasis. No free intraperitoneal air is identified on this supine radiograph. The visualized soft tissue shadows are unremarkable. No gross bony abnormalities are seen. Visualized portions of lung bases are clear. IMPRESSION: Multiple radiopaque densities overlying the kidneys may represent nephrolithiasis. Reviewed, dictated and finalized at location A. IMPRESSION: Multiple radiopaque densities overlying the kidneys may represent n ephrolithiasis.
--- OUTSIDE RECORDS SUMMARY | 2025-01-13 11:51 | XMS_ITS | Referral Summary ---
Author Organization [facility] [place] [address] [place] [address] 162 [address] [place] [address] Care Team Providers Care River Rat Name Role Phone Jeremiah Esquivel MD Unavailable Brionna Crenshaw MD Primary Care Provider [phone] Lv Newell MD Unavailable [phone] Speedy Turner MD Unavailable Miscellaneous, Not In File Unavailable Unava ilable Encounters Date Type Department Care Team Description 11/03/2024 11:30 AM CDT Office Visit [facility] Cardiology [address] [facility] [address] [place] [address] Speedy Turner MD Coronary artery disease involving [place] coronary artery of [place] heart without angina pectoris (Primary Dx); S/P CABG x 4; Paroxysmal atrial fibrillation (HCC); S/P left atrial appendage ligation; Essential hypertension; Mild aortic stenosis; History of DVT (deep vein thrombosis); Chronic anticoagulation; [place]OD[place] on CPAP from Last 3 Months Allergies Active Allergy Reactions Criticality Noted Date Comments Beta-Blockers (Beta-Adrenerg ic Blocking Agts) Cough Low 03/01/2022 Medications allopurinoL (ZYLOPRIM) 300 mg tablet Take 1 tablet (300 mg total) by mouth daily Active apixaban (ELIQUIS) 5 mg tabletIndicatio ns:History of DVT (deep vein thrombosis) Take 1 tablet (5 mg total) by mouth 2 (two) times a day 180 tablet 3 2 Active acetaminophen 500 mg capsule Take 2 capsules (1,000 mg total) by mouth every 6 (six) hours as needed for headaches or pain 4 Active atorvastatin (LIPITOR) 40 mg tablet Take 1 tablet (40 mg total) by mouth daily 90 tablet 1 4 Active aspirin 81 mg enteric coated tablet Take 1 tablet (81 mg total) by mouth daily 30 tablet 11 4 05/05/20 25 Active Farxiga 10 mg tablet TAKE 1 TABLET DAILY 90 tablet 3 4 Active metoprolol XL (TOPROL-XL) 25 mg extended release tablet Take 1 tablet (25 mg total) by mouth daily 90 tablet 3 4 06/18/20 25 Active losartan (COZAAR) 100 mg tablet Take 1 tablet (100 mg total) by mouth nightly 90 tablet 6 5 Active Active Problems Problem Noted Date Diagnosed Date Coronary artery disease invo lving autologous artery coronary bypass graft without angina pectoris 03/15/2024 Coronary artery disease invo lving [place] coronary artery of [place] heart without angina pectoris 03/05/2024 Chest pressure 02/03/2024 Abnormal stress test 02/03/2024 Immunizations Immunization Administration Dates Next Due Hep A / Hep B 04/20/2020,03/19/2019,02/16/2019 Influenza, Quadrivalent, Yahaira l Culture-based MDCK, Antibiotic Free, Intramuscular 04/14/2018 Influenza, Trivalent, Adjuva nted, Intramuscular 02/16/2019 Influenza, Trivalent, High D ose, Split, Preservative Free, Intramuscular 03/05/2017 Influenza, Trivalent, Preser vative Free, Intramuscular 03/23/2020 Influenza, Unspecified 04/02/2023,03/22/2020 Pfizer SARS-CoV-2 Monovalent Vaccination (12+ Yrs) PURPLE 08/07/2020 Pneumococcal Conjugate PCV 13 04/19/2019 Pneumococcal Polysaccharide PPV23 08/19/2012 Rabies, Intradermal 03/16/2019,03/02/2019,2018 TD Preservative Free 12/30/2002 Tdap 03/16/2019,08/19/2012 Typhoid Inactivated 02/16/2019 ZOSTER Recombinant 04/19/2019,02/12/2019 Social History Tobacco Use Types Packs/Day Years Used Date Smoking Tobacco: Never Passive Smoke Exposure: Never Smokeless Tobacco: Never Tobacco Cessation:Counseling Given: Not Answered [facility] Utilities Answer Date Recorded In the past 12 months has th e [employer], gas, oil, or water company threatened to shut off services in your home? No 03/18/2024 Social Connection and Isolat ion Panel [NHANES] Answer Date Recorded In a typical week, how many times do you talk on the phone with family, friends, or neighbors? Three times a week 03/18/2024 How often do you get togethe r with friends or relatives? Once a week 03/18/2024 How often do you attend chur ch or baptism services? More than 4 times per year 03/18/2024 Do you belong to any clubs o r organizations such as alevism groups, unions, fraternal or athletic groups, or school groups? No 03/18/2024 How often do you attend meet ings of the clubs or organizations you belong to? Never 03/18/2024 Are you , , di vorced, , never , or living with a partner? 03/18/2024 AUDIT-C Answer Date Recorded Q1: How often do you have a drink containing alcohol? 4 or more times a week 03/15/2024 Q2: How many drinks containi ng alcohol do you have on a typical day when you are drinking? 1 or 2 Q3: How often do you have si x or more drinks on one occasion? Never 03/15/2024 Overall Financial Resource Strain (CARDIA) Answe r Date Recorded How hard is it for you to pa y for the very basics like food, housing, medical care, and heating? Not hard at all 03/18/2024 Hunger Vital Sign Answer Date Recorded Within the past 12 months, y ou worried that your food would run out before you got the money to buy more. Never true 03/18/20 24 Within the past 12 months, t he food you bought just didn't last and you didn't have money to get more. Never true 03/18/2024 PRAPARE - Transportation Answer Date Re corded In the past 12 months, has l ack of transportation kept you from medical appointments or from getting medications? No 03/07 In the past 12 months, has l ack of transportation kept you from meetings, work, or from getting things needed for daily living? No 03/18/2024 Housing Stability Vital Sign Answer Gt e Recorded In the last 12 months, was t here a time when you were not able to pay the mortgage or rent on time? No 03/18/2024 In the past 12 months, how m any times have you moved where you were living? 0 03/18/2024 At any time in the past 12 m [facility], were you homeless or living in a long-term (including now)? No 03/18/2024 Personal Safety Answer Date Recorded Have you ever been in or are you currently in a harmful physical or emotional relationship or is someone making you feel afraid or unsafe? Denies 03/15/2024 Sex and Gender Information Value Date Recorded Sex Assigned at Not on file Legal Sex Male 11:37 AM CDT Gender Identity Male 10/08/2022 11:22 AM CDT Sexual Orientation Not on file Last Filed Vital Signs Vital Sign Reading Time Taken Comments Blood Pressure 138/76 11/03/2024 11:38 AM CDT Pulse 69 11/03/2024 11:38 AM CDT Temperature 36.1 C (96.9 F) 06/07/2024 1:30 PM MARKETING SUPPORT COORDINATOR Respiratory Rate 16 06/17/2024 12:58 PM MARKETING SUPPORT COORDINATOR Oxygen Saturation 96% 11/03/2024 11:38 AM CDT Inhaled Oxygen Concentration - - Weight 126.6 kg (279 lb) 11/03/2024 11:38 AM CDT Height 167.6 cm (5' 6) 11/03/2024 11:38 AM CDT Body Mass Index 45.03 11/03/2024 11:38 AM CDT Plan of Treatment Not on file Medical Devices Implanted Type Area Automation Technician Device Identifier Shelf Expiration Date Model / Serial / Lot Atricure Device Left Atrial Appendage Malleable Shaft 180 Degree Rotation White Atriclip Flex V 35mm Flexv35 Achv35 - [id number] Implanted:Qty: 1 on 03/15/2024 by Lv Newell MD at [facility] Clip Left: Atrial Appendage Atricure 09/04/2026 [id number] / / [id number] [employer] Plate Bone Low Profile 4 Hole Box Sternum Ti 115.103.04 - [id number] Implanted:Qty: 1 on 03/15/2024 by Lv Newell MD at [facility] Plate N/A: Sternum [employer] 115.103.0 4 / / [employer] Plate Bone Low Profile 6 Hole H Shape Sternum Ti 115.102.06 - [id number] Implanted:Qty: 1 on 03/15/2024 by Lv Newell MD at [facility] Plate N/A: Sternum [employer] 115.102.0 6 / / [employer] Plate Bone Low Profile 6 Hole O Concave Sternum Ti 115.604.06 - [id number] Implanted:Qty: 1 on 03/15/2024 by Lv Newell MD at [facility] Plate N/A: Sternum [employer] 115.604.0 6 / / [employer] Screw Bone Slf Drl Full Thread Locking 3.5x18mm Ti 100.035.18 - [id number] Implanted:Qty: 16 on 03/15/2024 by Lv Newell MD at [facility] Screw N/A: Sternum [employer] 100.035.1 8 / / Tooth Mouth [employer] Allison [id number] Contour Vl 6fr 22-30cm Large Inner Lumen Low Profile Bladder Clifford Latex Free - [id number] Implanted:Qty: 1 on 10/19/2020 by Jeremiah Esquivel MD at [facility] Right: Ureter [employer] Allison 08/19/2023 [id number] / / [id number] Procedures Procedure Name Priority Date/Time Associated Diagnosis Comments EGFR Routine 06/07/2024 1:20 PM MARKETING SUPPORT COORDINATOR History of DVT (deep vein thrombosis) HEMOGLOBIN A1C Routine 03/16/2024 2:54 AM CDT LIPID PANEL Routine 03/16/2024 2:54 AM CDT from Last 3 Months or Most Recently Relevant to Health Maintenance Results * (ABNORMAL) eGFR (06/07/2024 1:20 PM MARKETING SUPPORT COORDINATOR) eGFR 46(L) >=60 mL/min/1. 73 m2 Comment: Interpretive Data Reference Interval Normal >/= 90 mL/min/1.73m2 Mildly decreased* 60 - 89 mL/min/1.73m2 Mildly to moderately decreased 45 - 59 mL/min/1.73m2 Moderately to severely decreased 30 - 44 mL/min/1.73m2 Severely decreased 15 - 29 mL/min/1.73m2 Kidney Failure < 15 mL/min/1.73m2 *Relative to young adult level Estimated glomerular filtration rate is determined by the 2020 CKD-EPI equation recommended by the National Kidney Foundation (A Unifying Approach to GFR Estimation: Recommendations of the NKF-ASK Task Force on Reassessing the Inclusion of Race in Diagnosing Kidney Disease, JASN 2020). The CKD-EPI equation should not be used for patients with unstable renal function and has not been validated in children and those over 70. Current interpretive data was last reviewed 2021. Blood 06/07/2024 1:20 PM MARKETING SUPPORT COORDINATOR 06/07/2024 1:44 PM MARKETING SUPPORT COORDINATOR us iLsa Ramos MD LAB BLOOD ORDERABLES Final Result Performing Organization Address City/State/[facility] Co de Phone Number [facility] Department [place] [address] * (ABNORMAL) Hemoglobin A1c (03/16/2024 2:54 AM CDT) Hgb A1C 6.1(H) 4.0 - 5.6 % Estimated Average Glucose 128 mg/dL JULIANN SALES Comment: The ADA recommends reporting an estimated Average Glucose (eAG) with all Hemoglobin A1c results using the equation derived from a study of 507 normal and diabetic adults. Minority populations were underrepresented and children were not included. (Diabetes Care 31:0661-6409, 2008). The eAG is not equivalent to a fasting glucose. Blood 03/16/2024 2:54 AM CDT 03/16/2024 3:17 AM CDT us Lv Newell MD LAB BLOOD ORDERABLES Final Res ult JULIANN [address] Department [place] [address] * (ABNORMAL) Lipid panel (03/16/2024 2:54 AM CDT) Cholesterol 58 30 - 199 mg/dL Comment: Interpretive Data Ages < or = 19 years Acceptable: <170 mg/dL Borderline high: 170-199 mg/dL High: >or= 200 mg/dL Ages > or = 20 years Desirable: <200 mg/dL Borderline high: 200-239 mg/dL High: >or= 240 mg/dL Literature References: 1. Expert Panel on Integrated Guidelines for Cardiovascular Health and Risk Reduction in Children and Adolescents. Pediatrics 2011;128:S213 2. NCEP Expert Panel. Circulation 2004;110:227 Current Interpretive Data was last revised on 2018. Triglycerides 113 <=149 mg/dL JULIANN Comment: Interpretive Data Ages < or = 9 years Acceptable: <75 mg/dL Borderline high: 75-99 mg/dL High: >or= 100 mg/dL Ages 10 to 20 years Acceptable: <90 mg/dL Borderline high: 90-129 mg/dL High: >or= 130 mg/dL Ages > or = 20 years Desirable: <150 mg/dL Borderline high: 150-199 mg/dL High: 200-499 mg/dL Very high: >or= 499 mg/dL Literature References: 1. Expert Panel on Integrated Guidelines for Cardiovascular Health and Risk Reduction in Children and Adolescents. Pediatrics 2011;128:S213 2. NCEP Expert Panel. Circulation 2004;110:227 Current Interpretive Data was last revised on 2018. HDL 26(L) >=40 mg/dL JULIANN SALES Comment: Interpretive Data Ages < or = 19 years Acceptable: >45 mg/dL Borderline low: 40-45 mg/dL Low: <40 mg/dL Ages > or = 20 years Desirable: >or= 60 mg/dL Low: <40 mg/dL Literature References: 1. Expert Panel on Integrated Guidelines for Cardiovascular Health and Risk Reduction in Children and Adolescents. Pediatrics 2011;128:S213 2. NCEP Expert Panel. Circulation 2004;110:227 Current Interpretive Data was last revised on 2018. LDL, calculated 11 <=129 mg/dL JULIANN SALES Comment: Interpretive Data Ages < or = 19 years Acceptable: <110 mg/dL Borderline high: 110-129 mg/dL High: >or= 130 mg/dL Ages > or = 20 years Optimal: <100 mg/dL Near optimal: 100-129 mg/dL Borderline high: 130-159 mg/dL High: >160 mg/dL Calculated using the Steve LDL-C estimating equation. This equation was implemented on 2024. Prior to this date LDL-C was estimated using the Friedewald equation. Literature References: 1. Expert Panel on Integrated Guidelines for Cardiovascular Health and Risk Reduction in Children and Adolescents. Pediatrics 2011;128:S213 2. NCEP Expert Panel. Circulation 2004;110:227 3. Steve Gomez al. CARLOS Cardiol. 2019November 04;5(5):540-548. doi: 10.1001/[email or web address].2020.0013 Current Interpretive Data was last revised on 2024. Non-HDL Cholesterol 32 mg/dL JULIANN Comment: Interpretive Data Ages < or = 19 years Acceptable: <120 mg/dL Borderline high: 120-144 mg/dL High: >145 mg/dL Ages > or = 20 years When triglycerides are >200 mg/dL, Non-HDL cholesterol is a secondary target of therapy with treatment goals that are 30 mg/dL greater than the LDL cholesterol target. Literature References: 1. Expert Panel on Integrated Guidelines for Cardiovascular Health and Risk Reduction in Children and Adolescents. Pediatrics 2011;128:S213 2. NCEP Expert Panel. Circulation 2004;110:227 Current Interpretive Data was last revised on 2018. Chol/HDL ratio 2 JULIANN Blood 03/16/2024 2:54 AM CDT 03/16/2024 3:16 AM CDT us Lv Newell MD LAB BLOOD [place] [address] [facility] Department [place] [address] from Last 3 Months or Most Recently Relevant to Health Maintenance Insurance [facility] MEDICARE AETNA MEDICARE [facility] MEDICARE Advance Directives For more information, please contact: [phone] Documents on File Type Date Recorded Patient Problem Manager Expl anation ADVANCE DIRECTIVE 03/15/2024 7:46 AM Power of Business Supervisor-Medical * Full Code (Latest Code Status on File) Date Activated Date Inactivated Comments 03/15/2024 2:05 PM 03/19/2024 8:32 PM Healthcare Agents on File Name Relationship Healthcare Agent Relationshi p Communication Cassidy Cristhian Spouse Health Care Agent Hannah Sanchez Daughter First [facility] Ca re Agent Care Teams River Rat Relationship Specialty Start Date End Date Brionna Crenshaw MD PCP - General Family Medicine 09/19/21 Jeremiah Esquivel MD Consulting Physician Urology 10/19/20 Lv Newell MD Surgeon Cardiothoracic Surgery 03/19/24 Speedy Turner MD [address], [address] [address] Consulting Physician Cardiology 03/19/24 Miscellaneous, Not In File 03/19/24
--- OUTSIDE RECORDS SUMMARY | 2025-01-13 11:51 | XMS_ITS | Clinical Summary ---
Author Organization [facility] [place] [address] Address [address] [place] [address] Care Team Providers Care Caretaker Grounds Name Role Phone Jeremiah Esquivel MD Unavailable Brionna Crenshaw MD Primary Care Provider Lv Newell MD Unavailable [phone] Speedy Turner MD Unavailable Miscellaneous, Not In File Unavailable Unava ilable Allergies Active Allergy Reactions Criticality Noted Date [...] pectoris 03/15/2024 Coronary artery disease invo lving [place] coronary artery of [place] heart without angina pectoris 03/05/2024 Chest pressure 02/03/2024 Abnormal stress test 02/03/2024 Encounters Date Type Department Care Team Description 11/03/2024 11:30 AM CDT Office Visit [facility] Cardiology [address] [place] [address] Speedy Turner MD Coronary artery disease involving [place] coronary artery of [place] heart without angina pectoris (Primary Dx); S/P CABG x 4; Paroxysmal atrial fibrillation (HCC); S/P left atrial appendage ligation; Essential hypertension; Mild aortic stenosis; History of DVT (deep vein thrombosis); Chronic anticoagulation; [place] on CPAP from Last 3 Months Immunizations Immunization Administration Dates Next Due Hep [...] 03/16/2019,08/19/2012 Typhoid Inactivated 02/16/2019 ZOSTER Recombinant 04/19/2019,02/12/2019 Surgical History Surgery Date Site/Laterality Comments EYE SURGERY Left ELBOW SURGERY Right KIDNEY STONE SURGERY COLONOSCOPY CARDIAC CATHETERIZATION 03/04/2024 Medical History Medical History Date Comments Hypertension Gout Borderline high cholesterol Sleep apnea Kidney stone Arrhythmia GERD (gastroesophageal reflux disease) resolved with CPAP, per patient DVT (deep venous thrombosis) (HCC) left leg Hyperlipidemia Atrial fibrillation (HCC) Chronic back pain Family History Medical History Relation Name Comments Heart attack Father Daryl Heart disease Father Daryl No Known Problems Mother Relation Name Status Comments Father Daryl Mother Social History Tobacco Use Types Packs/Day Years Used Date Smoking Tobacco: Never Passive Smoke Exposure: Never Smokeless Tobacco: Never Tobacco Cessation:Counseling Given: Not Answered [facility] Utilities Answer Date Recorded In the past 12 months has th e electric, gas, oil, or water company threatened to [...] often do you attend chur ch or rastafari services? More than 4 times per year 03/18/2024 Do you belong to any clubs o r organizations such as hindu groups, unions, fraternal or athletic groups, or [...] any time in the past 12 m [facility], were you homeless or living in a residential (including now)? No 03/18/2024 Personal Safety Answer [...] AM CDT Sexual Orientation Not on file Obstetrics History Last Filed Vital Signs Vital Sign Reading Time Taken Comments Blood Pressure 138/76 11/03/2024 11:38 AM CDT Pulse 69 11/03/2024 11:38 AM CDT Temperature 36.1 C (96.9 F) 06/07/2024 1:30 PM AIR BOX TESTER Respiratory Rate 16 06/17/2024 12:58 PM AIR BOX TESTER Oxygen Saturation 96% 11/03/2024 11:38 AM CDT Inhaled Oxygen Concentration - - Weight 126.6 kg (279 lb) 11/03/2024 11:38 AM CDT Height 167.6 cm (5' 6) 11/03/2024 11:38 AM CDT Body Mass Index 45.03 11/03/2024 11:38 AM CDT Plan of Treatment Health Maintenance Due Date Last Done Comments Albumin Creatinine Ratio, Urine 1950 Colon Cancer Screening-Colonoscopy 1950 Depression Screening 1950 Hepatitis C Screening 1950 Dilated Eye Exam 1950 Foot Exam 1950 Well Visit 65+ 12/30/2015 Covid-19 Vaccine (2 - 2023-2 5 season) 2024 08/07/2020 Pneumococcal vaccine 65+ (3 of 3 - PCV20 or PCV21) 04/19/2024 04/19/2019, 08/19/2012 Hemoglobin A1C 09/13/2024 03/16/2024 Influenza Vaccine (Season Ended) 2025 04/02/2023, 03/23/2020, 03/22/2020, Additional history exists Lipid Panel 03/16/2025 03/16/2024, 01/04, 12/24/2022, Additional history exists Fall Risk Assessment 03/19/2025 03/19/2024, 10/16/19 22 eGFR 06/07/2025 06/07/2024, 03/07, 03/18/2024, Additional history exists DTaP/Tdap/Td Vaccine (3 - Td or Tdap) 03/16/2029 03/16/2019, 08/19/2012, 12/30/2002 Zoster Vaccine Completed 04/19/2019, 02/12/2019 Hepatitis B Screening Completed 04/20/2020 , 03/19/2019, 02/16/2019 Medical Devices Implanted Type Area Paralegal Device Identifier Shelf Expiration Date Model / Serial / Lot Atricure Device Left Atrial Appendage Malleable Shaft 180 Degree Rotation White Atriclip Flex V 35mm Flexv35 Achv35 - [id number] Implanted:Qty: 1 on 03/15/2024 by Lv Newell MD at [facility] Left: Atrial Appendage Atricure 09/04/2026 [id number] / / [id number] [employer] Plate Bone Low Profile 4 Hole Box Sternum Ti 115.103.04 - [id number] Implanted:Qty: 1 on 03/15/2024 by Lv Newell MD at [facility] Plate N/A: Sternum [employer] 115.103.0 4 / / [employer] Plate Bone Low Profile 6 Hole H Shape Sternum Ti 115.102.06 - [id number] Implanted:Qty: 1 on 03/15/2024 by Lv Newell MD at [facility] Plate N/A: Sternum [employer] 115.102.0 6 / / [employer] Plate Bone Low Profile 6 Hole O Concave Sternum Ti 115.604.06 - [id number] Implanted:Qty: 1 on 03/15/2024 by Lv Newell MD at [facility] Plate N/A: Sternum [employer] 115.604.0 6 / / [employer] Screw Bone Slf Drl Full Thread Locking 3.5x18mm Ti 100.035.18 - [id number] Implanted:Qty: 16 on 03/15/2024 by Lv Newell MD at [facility] Screw N/A: Sternum [employer] 100.035.1 8 / / Tooth Mouth [employer] Allison [id number] Contour Vl 6fr 22-30cm Large Inner Lumen Low Profile Bladder Clifford Latex Free - [id number] Implanted:Qty: 1 on 10/19/2020 by Jeremiah Esquivel MD at [facility] Right: Ureter [employer] Allison 08/19/2023 [id number] / / [id number] Procedures Procedure Name Priority Date/Time Associated Diagnosis Comments EGFR Routine 06/07/2024 1:20 PM AIR BOX TESTER History of DVT (deep vein thrombosis) HEMOGLOBIN A1C Routine 03/16/2024 2:54 AM CDT LIPID PANEL Routine 03/16/2024 2:54 AM CDT from Last 3 Months or Most Recently Relevant to Health Maintenance Results * (ABNORMAL) eGFR (06/07/2024 1:20 PM AIR BOX TESTER) eGFR 46(L) >=60 mL/min/1. 73 m2 Comment: [...] last reviewed 2021. Blood 06/07/2024 1:20 PM AIR BOX TESTER 06/07/2024 1:44 PM AIR BOX TESTER Lisa Ramos MD LAB BLOOD ORDERABLES Final Result [facility] Department [place] [address] * (ABNORMAL) Hemoglobin A1c (03/16/2024 2:54 AM CDT) Hgb A1C 6.1(H) 4.0 - 5.6 % Estimated Average Glucose 128 mg/dL JULIANN Comment: The ADA recommends reporting an estimated Average Glucose (eAG) with all Hemoglobin A1c results using the equation derived from a study of 507 normal and diabetic adults. Minority populations were underrepresented and children were not included. (Diabetes Care 31:2268-4607, 2008). The eAG is not equivalent to a fasting glucose. Blood 03/16/2024 2:54 AM CDT 03/16/2024 3:17 AM CDT us Lv Newell MD LAB BLOOD ORDERABLES Final Res ult J[place] [address] Department of Laboratories [place] [id number] * (ABNORMAL) Lipid panel (03/16/2024 2:54 AM [...] on 2018. Triglycerides 113 <=149 mg/dL JULIANN SALES Comment: Interpretive Data Ages [...] NCEP Expert Panel. Circulation 2004;110:227 3. Steve Ch et al. CARLOS Cardiol. 2019November 04;5(5):540-548. doi: 10.1001/jamacardio.2020.0013 Current Interpretive Data was last revised on 2024. Non-HDL Cholesterol 32 mg/dL JULIANN SALES Comment: Interpretive Data Ages [...] revised on 2018. Chol/HDL ratio 2 JULIANN SALES Blood 03/16/2024 2:54 AM CDT 03/16/2024 3:16 AM CDT us vL Newell MD LAB BLOOD ORDERABLES Final Res ult JULIANN [address] Department [place] [address] from Last 3 Months or Most Recently Relevant to Health Maintenance Insurance [employer] MEDICARE AETNA MEDICARE AETNA MEDICARE Advance Directives For more information, please contact: [phone] Documents on File Type Date Recorded Patient Roll Machine Operator Expl anation ADVANCE DIRECTIVE 03/15/2024 7:46 AM Power of Diagrammer And Seamer-Medical * Full Code (Latest Code Status on File) Date Activated Date Inactivated Comments 03/15/2024 2:05 PM 03/19/2024 8:32 PM Healthcare Agents on File Name Relationship Healthcare Agent Relationshi p Communication Cassidy Cristhian Spouse Health Care Agent Hannah Sanchez Daughter [facility] Ca re Agent Care Teams Caretaker Grounds Relationship Specialty Start Date End Date Brionna Crenshaw MD PCP - General Family Medicine 09/19/21 Jeremiah Esquivel MD Consulting Physician Urology 10/19/20 vL Newell MD Surgeon Cardiothoracic Surgery 03/19/24 Speedy Turner MD [address] [address] [address] Consulting Physician Cardiology 03/19/24 Miscellaneous, Not In File 03/19/24
== END 2025-01-13 11:47 | disposition home or self-care (01) ==
PROVIDERS: PCP Family Medicine; Visit Provider Urology
DX: N20.0 Calculus of kidney (principal)
CPT/HCPCS: 74018

== ENCOUNTER 2025-04-27 10:38 | Outpatient (CLI) | payer MEDICARE, SELFPAY ==
--- NOTE | ~2025-04-27 | XR_ITS ---
XR hip BI 2V w AP pelvis 04/27/2025 11:00 Indication: Low back pain Procedure: AP pelvis and 2 views each hip Comparison: No prior studies for comparison. Findings: Pelvic rings are intact. There is mild symmetric osteoarthritis of the hips. Sacral foramen are symmetric. There is lower lumbar spondylosis partially visualized. No acute fracture or traumatic malalignment. Impression: 1: Mild symmetric osteoarthritis of the hips. Reviewed, dictated and finalized at location O. Impression: 1: Mild symmetric osteoarthritis of the hips.
--- NOTE | ~2025-04-27 | XR_ITS ---
XR lumbar spine 2-3V 04/27/2025 11:00 Indication: Low back pain Procedure: 3 views lumbar spine Comparison: No prior studies for comparison. Findings: There is disc narrowing at all lumbar levels. Disc narrowing most advanced at L4-5 and L5-S1. There is severe multilevel facet hypertrophy most pronounced at L4-5 and L5-S1 1. There is grade 2 degenerative spondylolisthesis at L4-5. There is atherosclerosis of the aorta. There are right renal stones. Prominent bridging osteophytes are present at multiple levels. Impression: 1: Severe lumbar spondylosis. 2: Right nephrolithiasis. Reviewed, dictated and finalized at location O. Impression: 1: Severe lumbar spondylosis. 2: Right nephrolithiasis.
== END 2025-04-27 10:39 | disposition home or self-care (01) ==
PROVIDERS: PCP Family Medicine; Visit Provider Student in an Organized Health Care Education/Training Program
DX: M47.896 Other spondylosis, lumbar region (principal); N20.0 Calculus of kidney; M16.0 Bilateral primary osteoarthritis of hip
CPT/HCPCS: 72100; 73521